=== PATIENT | male | born 1945 | race Caucasian/White ===

== ENCOUNTER 2017-10-25 09:47 | Emergency (ER) | payer MEDICARE ==
--- NOTE | 2017-11-24 17:59 | EKG ---
Test Reason : Blood Pressure : / mmHG Vent. Rate : 098 BPM Atrial Rate : 098 BPM P-R Int : 190 ms QRS Dur : 084 ms QT Int : 338 ms P-R-T Axes : 112 -22 144 degrees QTc Int : 431 ms Normal sinus rhythm Left ventricular hypertrophy with repolarization abnormality Left axis deviation Nonspecific T wave abnormality Abnormal ECG Confirmed by BOBBI MALDONADO D.O. ([id number]), copy editor JERAD MUNGUIA ([id number]) on 11/24/2017 5:58:59 PM Referred By: DR. MALDONADO Confirmed By:BOBBI MALDONADO D.O.
== END 2017-10-25 10:52 | disposition home or self-care (01) ==
LOC: SCSER 09:47
DX: J32.9 Chronic sinusitis, unspecified (principal); B96.89 Other specified bacterial agents as the cause of diseases classified elsewhere; I10 Essential (primary) hypertension; I48.91 Unspecified atrial fibrillation; Z79.899 Other long term (current) drug therapy; Z79.82 Long term (current) use of aspirin; Z79.01 Long term (current) use of anticoagulants
CPT/HCPCS: 93005

== ENCOUNTER 2017-10-27 12:29 | Emergency (ER) | payer MEDICARE ==
[2017-10-27 13:55] LABS: #Eosinphils 0.2 thou/uL (0.0-0.7); #Lymphocytes 1.5 thou/uL (1.20-3.40); #Neutrophils 5.7 thou/uL (1.40-6.50); %Basophils 0.3 % (0.0-1.0); %Eosinophils 1.8 % (0.0-10.0); %Lymphocytes 17.6 % (21.0-51.0); %Monocytes 12.1 % (0.0-10.0); %Neutrophils 68.2 % (42.0-75.0); Hemoglobin 14.5 g/dL (14.0-18.0); Mean Corpuscular HGB CONC 33.9 g/dL (32.0-36.0); Mean Corpuscular Hemoglobin 30.8 pg (27.0-31.0); Mean Corpuscular Volume 91.1 fl (80.0-94.0); Mean Platelet Volume 7.3 fL (7.4-10.4); Platelet Count 226 thou/uL (130-400); RBC Distribution Width 12.3 % (11.5-14.5); Red Blood Cell (RBC) Count 4.69 mill/uL (4.70-6.10); White Blood Cell (WBC) Count 8.3 thou/uL (4.8-10.8)
--- NOTE | 2017-10-27 14:11 | RAD ---
PORTABLE CHEST ONE VIEW: 10/27/2017 1:16 p.m. HISTORY: Shortness of breath. COMPARISON: 01/23/2017 FINDINGS: There is continued elevation of the right hemidiaphragm. There are changes of median sternotomy. Th e heart size is enlarged. The aorta is tortuous. No focal areas of consolidation, pneumothorax, or pleural effusions are seen. IMPRESSION: No radiographic evidence of acute cardiopulmonary process. POS: [facility]
[2017-10-27 14:16] LABS: ALT (SGPT) 17 U/L (8-55); AST (SGOT) 14 U/L (5-34); Alkaline Phosphatase 59 U/L (40-150); Anion Gap 13 mmol/L (10-20); BUN (Urea Nitrogen) 13 mg/dL (8.4-25.7); Bilirubin, Total 1.1 mg/dL (0.2-1.2); CK (CPK) 103 U/L (30-200); Calc. Creatinine Clearance 0 mL/min (70-130); Calcium 9.7 mg/dL (7.8-10.44); Carbon Dioxide 29 mmol/L (23-31); Chloride 100 mmol/L (98-107); Estimated GFR-MDRD Greater than 90; Globulin 2.7 g/dL (2.4-3.5); Glucose 103 mg/dL (83-110); Potassium 4.1 mmol/L (3.5-5.1); Protein, Total 6.7 g/dL (5.8-8.1); Sodium 138 mmol/L (136-145)
[2017-10-27 14:20] LABS: CKMB 3.5 ng/mL (0-6.6); Troponin I 0.016 ng/mL (< 0.028)
[2017-10-27] MEDS ORDERED: Azithromycin 500 MG in Sodium Chloride 0.9% 250 ML 250 ML IVPB ONE (14:30)
[2017-10-27 16:21] LABS: Magnesium 2.1 mg/dL (1.6-2.6)
--- NOTE | 2017-11-03 15:42 | EKG ---
Test Reason : Blood Pressure : / mmHG Vent. Rate : 092 BPM Atrial Rate : 092 BPM P-R Int : 182 ms QRS Dur : 088 ms QT Int : 370 ms P-R-T Axes : 032 -17 139 degrees QTc Int : 457 ms Sinus rhythm with frequent Premature ventricular complexes --trigeminy Left ventricular hypertrophy with repolarization abnormality Abnormal ECG Confirmed by GHANSHYAM GRIFFIN DO ([id number]), newspaper photo editor SALVATORE RODRIGES ([id number]) on 11/03/2017 3:41:48 PM Referred By: Confirmed By:GHANSHYAM GRIFFIN DO
== END 2017-10-27 17:23 | disposition home or self-care (01) ==
LOC: ERS 12:29
DX: J20.9 Acute bronchitis, unspecified (principal); I10 Essential (primary) hypertension; I48.91 Unspecified atrial fibrillation
CPT/HCPCS: 71010; 80053; 82553; 83690; 83735; 84443; 84484; 85025; 87804; 93005; 94640; 96365; 96375; J0456; J0696; J7050; J7620

== ENCOUNTER 2017-11-23 07:59 | Outpatient (CLI) | payer MEDICARE ==
--- NOTE | 2017-11-23 10:57 | MRI ---
MRI OF THE RIGHT SHOULDER: Date: 11/23/17 PROVIDED CLINICAL HISTORY: Right shoulder pain. FINDINGS: There is a full thickness, partial width, delaminating tear of the posterior fibers of the supraspina tus. There is tendinosis of the distal conjoined tendon with associated bursal surface irregularity a nd low grade partial thickness interstitial tearing. The subscapularis and teres minor appear intact. The long head biceps tendon appears intact and normally located. There is suspected degenerative, nondisplaced tearing involving the superior and posterior superior g lenoid labrum. The glenoid labrum and glenohumeral articular cartilage are suboptimally evaluated wit hout joint distention. There is evidence for cartilage loss involving the central aspects of the galilea oid with subject subcortical cyst-like change. The amount of fluid within the glenohumeral joint is physiologic. There is greater than physiologic s ubacromial/subdeltoid bursal fluid. Acromioclavicular joint osteoarthrosis is demonstrated. Subscapularis muscular volume loss is noted, the significance of which is uncertain. Rotator cuff muscular volume appears otherwise preserved. Co nspicuous subacromial/subdeltoid bursal fluid is noted. IMPRESSION: 1. Full thickness, partial width, retracted and delaminating tear involving the posterior fibers of the supraspinatus. Tendon fibers are retracted proximally into the region of the musculotendinous mc ction. 2. Distal conjoined tendinosis with bursal surface irregularity and low grade interstitial partial t earing. 3. Degenerative superior and posterior superior glenoid labral tear is suspected along with glenoid chondrosis. 4. Acromioclavicular joint osteoarthrosis. 5. Conspicuous subacromial/subdeltoid bursal fluid, possibly reflecting occult bursitis. POS: [facility]
== END 2017-11-23 08:00 | disposition home or self-care (01) ==
LOC: MRI 07:59 → TBSIIMAG 08:00
PROVIDERS: ATTEND Orthopaedic Surgery
DX: M25.511 Pain in right shoulder (principal); M19.011 Primary osteoarthritis, right shoulder

== ENCOUNTER 2017-12-03 12:42 | Outpatient (CLI) | payer MEDICARE ==
[2017-12-03 14:00] LABS: #Eosinphils 0.1 thou/uL (0.0-0.7); #Lymphocytes 1.9 thou/uL (1.20-3.40); #Monocytes 0.9 thou/uL (0.11-0.59); #Neutrophils 5.8 thou/uL (1.40-6.50); %Basophils 0.2 % (0.0-1.0); %Eosinophils 1.6 % (0.0-10.0); %Lymphocytes 21.8 % (21.0-51.0); %Monocytes 9.9 % (0.0-10.0); %Neutrophils 66.5 % (42.0-75.0); Hemoglobin 14.5 g/dL (14.0-18.0); Mean Corpuscular HGB CONC 33.3 g/dL (32.0-36.0); Mean Corpuscular Hemoglobin 30.2 pg (27.0-31.0); Mean Corpuscular Volume 90.5 fl (80.0-94.0); Mean Platelet Volume 7.6 fL (7.4-10.4); Platelet Count 214 thou/uL (130-400); RBC Distribution Width 12.9 % (11.5-14.5); Red Blood Cell (RBC) Count 4.79 mill/uL (4.70-6.10); White Blood Cell (WBC) Count 8.7 thou/uL (4.8-10.8)
[2017-12-03 14:46] LABS: Anion Gap 11 mmol/L (10-20); BUN (Urea Nitrogen) 13 mg/dL (8.4-25.7); Calc. Creatinine Clearance 0 mL/min (70-130); Calcium 9.6 mg/dL (7.8-10.44); Carbon Dioxide 30 mmol/L (23-31); Chloride 103 mmol/L (98-107); Estimated GFR-MDRD 87; Glucose 166 mg/dL (83-110); Potassium 3.6 mmol/L (3.5-5.1); Sodium 140 mmol/L (136-145)
== END 2017-12-03 12:43 | disposition home or self-care (01) ==
LOC: LABBT 12:42
PROVIDERS: ATTEND Orthopaedic Surgery
DX: Z01.818 Encounter for other preprocedural examination (principal); M75.101 Unspecified rotator cuff tear or rupture of right shoulder, not specified as traumatic
CPT/HCPCS: 80048; 85025; 93005; 93010

== ENCOUNTER 2017-12-06 06:02 | Day surgery (SDC) | payer MEDICARE ==
[2017-12-03 13:10] VITALS: BMI 35.4
[2017-12-06] MEDS ORDERED: Fentanyl 100 MCG/2 ML VIAL ONE (06:28)
[2017-12-06] MEDS ORDERED: Lidocaine 1% (PF) 30 ML VIAL ONE (06:28)
[2017-12-06] MEDS ORDERED: Midazolam HCl 2 mg/2 ml Vial ONE (06:28)
[2017-12-06] MEDS ORDERED: Ropivacaine 0.2% 550 ML 550 ML NERVE BLCK SCH (06:49)
[2017-12-06] MEDS ORDERED: HYDROcodone/Acetaminophen 10/325 mg Tablet PO PRN ×2 (06:49)
[2017-12-06] MEDS ORDERED: traMADol HCl 50 MG TAB PO PRN ×2 (06:49)
[2017-12-06] MEDS ORDERED: Ketorolac Tromethamine 30 MG/ML VIAL IVP PRN (06:49)
[2017-12-06] MEDS ORDERED: Zolpidem Tartrate 5 MG TAB PO PRN (06:49)
[2017-12-06] MEDS ORDERED: Ondansetron HCl/PF 4 MG/2 ML Vial IVP PRN (06:49)
[2017-12-06] MEDS ORDERED: Promethazine HCl 25 MG/ML VIAL IM PRN (06:49)
[2017-12-06] MEDS ORDERED: Fentanyl 100 MCG/2 ML VIAL IV PRN (06:50)
[2017-12-06] MEDS ORDERED: Levofloxacin 500 mg/D5W 100 ml Premix Bag ONE (06:52)
[2017-12-06] MEDS ORDERED: Clindamycin/D5W 900 mg/50 ml Premix Bag ONE (06:52)
--- NOTE | 2017-12-06 10:35 | OP ---
PREOPERATIVE DIAGNOSIS: Rotator cuff tear, large. POSTOPERATIVE DIAGNOSIS: Rotator cuff tear, large. PROCEDURE PERFORMED: Open shoulder rotator cuff repair and open acromioplasty. SURGEON: Dr. Abebe. BRUSHER AND SHEARER: Alexandru Sanchez PA-C. BLOOD LOSS: Minimal. SPECIMEN: None. DRAINS: None. COMPLICATIONS: None. DESCRIPTION OF PROCEDURE: The patient taken to the operating room where general anesthesia was induc ed. He was placed in a beach chair position. Right arm was prepped and draped in the usual sterile fashion. I made a standard anterior deltoid splitting approach. Anterior and inferior acromioplasty was performed. Bursectomy was performed. A strange rotator cuff tear pattern, which extended from the greater tuberosity all the way to the glenoid through the supraspinatus. I freshened up the deysi ins of the tear. I repaired this with a weaving baseball type stitch side to side starting at the ap ex and going all the way laterally and then I tied this, passed through a small remaining portion of cuff tissue and repaired it down laterally with an Arthrex SwiveLock device. The shoulder was then i rrigated. Deltoid was repaired back to bone with #1 Ethibond, subcu closed with 2-0 Vicryl, the skin was closed with gisela.
[2017-12-06] MEDS ORDERED: Ropivacaine 0.5% HCl/PF (150 MG/30 ML VIAL) ONE (11:42)
[2017-12-06] MEDS ORDERED: Ropivacaine 0.2% HCl/PF (40 MG/20 ML VIAL) ONE (11:42)
[2017-12-06] MEDS ORDERED: Propofol 200 MG/20 ML VIAL ONE (12:09)
[2017-12-06] MEDS ORDERED: Lidocaine 1% PF 5 ML VIAL ONE (12:09)
[2017-12-06] MEDS ORDERED: Ondansetron HCl/PF 4 MG/2 ML Vial ONE (12:09)
[2017-12-06] MEDS ORDERED: PHENYLEPHRINE-NS 100 MCG/ML 10 ML SYRINGE ONE (12:09)
[2017-12-06] MEDS ORDERED: ePHEDrine/0.9% NaCl/PF SYRINGE 50 mg/10 ml ONE (12:09)
[2017-12-06] MEDS ORDERED: Glycopyrrolate 0.2 MG/ML 5 ML SYRINGE ONE (12:09)
== END 2017-12-06 11:30 | disposition home or self-care (01) ==
LOC: SDC 06:02
PROVIDERS: ATTEND Orthopaedic Surgery
PROC: 0LQ10ZZ Repair Right Shoulder Tendon, Open Approach (ICD-10-PCS; principal; 2017-12-06)
PROC: 0RHJ04Z Insertion of Internal Fixation Device into Right Shoulder Joint, Open Approach (ICD-10-PCS; 2017-12-06)
DX: M75.121 Complete rotator cuff tear or rupture of right shoulder, not specified as traumatic (principal); I10 Essential (primary) hypertension; I48.2 Chronic atrial fibrillation; E78.5 Hyperlipidemia, unspecified; I47.1 Supraventricular tachycardia; Z79.01 Long term (current) use of anticoagulants; Z79.899 Other long term (current) drug therapy; Z88.0 Allergy status to penicillin; Z88.8 Allergy status to other drugs, medicaments and biological substances; Z96.653 Presence of artificial knee joint, bilateral; Z98.890 Other specified postprocedural states
CPT/HCPCS: 23415; 97139; A4306; C1713; G8984; G8985; G8986; J1956; J2001; J2250; J2795; J3010; J3490

== ENCOUNTER → 2017-12-07 | Day surgery (SDC) | payer MEDICARE ==
[~2017-12-07] MED LIST: Ropivacaine 0.2% HCl/PF (40 MG/20 ML VIAL) ONE; Ropivacaine 0.5% HCl/PF (150 MG/30 ML VIAL) ONE
== END ==
LOC: SDC/OP 07:35
PROVIDERS: ATTEND Anesthesiology
PROC: 3E0T3BZ Introduction of Anesthetic Agent into Peripheral Nerves and Plexi, Percutaneous Approach (ICD-10-PCS; principal; 2017-12-07)
PROC: BP48ZZZ Ultrasonography of Right Shoulder (ICD-10-PCS; 2017-12-07)
DX: M25.511 Pain in right shoulder (principal); Z88.0 Allergy status to penicillin; Z88.8 Allergy status to other drugs, medicaments and biological substances; Z79.01 Long term (current) use of anticoagulants; Z79.899 Other long term (current) drug therapy
CPT/HCPCS: J2795

== ENCOUNTER 2018-02-11 19:30 | Outpatient (CLI) | payer MEDICARE | END 2018-02-11 19:31 | disposition home or self-care (01) | LOC: SLEEPLAB 19:30 | PROVIDERS: ATTEND Otolaryngology Plastic Surgery within the Head & Neck | DX: G47.33 Obstructive sleep apnea (adult) (pediatric) (principal); I10 Essential (primary) hypertension; I48.91 Unspecified atrial fibrillation; I49.3 Ventricular premature depolarization | CPT/HCPCS: 95810 ==

== ENCOUNTER 2018-06-24 14:00 | Emergency (ER) | payer MEDICARE | END 2018-06-24 14:38 | disposition home or self-care (01) | LOC: SCSER 14:00 | DX: S80.12XA Contusion of left lower leg, initial encounter (principal); S80.11XA Contusion of right lower leg, initial encounter; I10 Essential (primary) hypertension; I48.91 Unspecified atrial fibrillation; Z96.653 Presence of artificial knee joint, bilateral; W18.30XA Fall on same level, unspecified, initial encounter | CPT/HCPCS: 99283 ==

== ENCOUNTER 2018-06-27 08:55 | Emergency (ER) | payer MEDICARE ==
--- NOTE | 2018-06-27 10:54 | RAD ---
2 VIEWS LEFT FORELEG: Date: 06/27/18 INDICATION: Left leg injury. COMPARISON: None. FINDINGS: There is left total knee prosthesis. A small amount of polymethylmethacrylate is seen within the post erior aspect of the knee joint. No acute fracture or subluxation is evident. There is soft tissue swe lling of left foreleg. IMPRESSION: No acute osseous abnormality. Soft tissue swelling of left foreleg. POS: [facility]
== END 2018-06-27 10:55 | disposition home or self-care (01) ==
LOC: SCSER 08:55
DX: S80.12XA Contusion of left lower leg, initial encounter (principal); S80.11XA Contusion of right lower leg, initial encounter; I10 Essential (primary) hypertension; I48.91 Unspecified atrial fibrillation; Z79.899 Other long term (current) drug therapy; W17.89XA Other fall from one level to another, initial encounter; Y92.61 Building [any] under construction as the place of occurrence of the external cause

== ENCOUNTER 2018-06-29 12:44 | Emergency (ER) | payer MEDICARE ==
[2018-06-29 14:59] LABS: #Eosinphils 0.2 thou/uL (0.0-0.7); #Lymphocytes 1.9 thou/uL (1.20-3.40); #Monocytes 0.7 thou/uL (0.11-0.59); #Neutrophils 4.6 thou/uL (1.40-6.50); %Basophils 0.2 % (0.0-1.0); %Eosinophils 2.9 % (0.0-10.0); %Lymphocytes 25.4 % (21.0-51.0); %Monocytes 9.6 % (0.0-10.0); %Neutrophils 61.9 % (42.0-75.0); Hemoglobin 14.1 g/dL (14.0-18.0); Mean Corpuscular HGB CONC 35.6 g/dL (32.0-36.0); Mean Corpuscular Hemoglobin 31.3 pg (27.0-31.0); Mean Corpuscular Volume 87.9 fL (78.0-98.0); Mean Platelet Volume 7.6 fL (7.4-10.4); Platelet Count 189 thou/uL (130-400); RBC Distribution Width 13.2 % (11.5-14.5); Red Blood Cell (RBC) Count 4.52 mill/uL (4.70-6.10); White Blood Cell (WBC) Count 7.4 thou/uL (4.8-10.8)
[2018-06-29 15:15] LABS: INR-International Normal Ratio 3.2; PTT 45.7 SEC (22.9-36.1); Prothrombin Time 32.5 SEC (12.0-14.7)
[2018-06-29 15:19] LABS: ALT (SGPT) 20 U/L (8-55); AST (SGOT) 18 U/L (5-34); Albumin 4.2 g/dL (3.4-4.8); Alkaline Phosphatase 66 U/L (40-150); Anion Gap 13 mmol/L (10-20); BUN (Urea Nitrogen) 15 mg/dL (8.4-25.7); Bilirubin, Total 1.6 mg/dL (0.2-1.2); CK (CPK) 54 U/L (30-200); Calc. Creatinine Clearance 0 mL/min (70-130); Carbon Dioxide 23 mmol/L (23-31); Chloride 106 mmol/L (98-107); Estimated GFR-MDRD 86; Globulin 2.4 g/dL (2.4-3.5); Glucose 98 mg/dL (83-110); Protein, Total 6.6 g/dL (5.8-8.1); Sodium 138 mmol/L (136-145)
[2018-06-29 15:23] LABS: CKMB 2.5 ng/mL (0-6.6); Troponin I Less than 0.010 ng/mL (< 0.028)
[2018-06-29] MEDS ORDERED: Lidocaine 1% w/Epinephrine 1:100K 20 ML VIAL ONE (15:24)
== END 2018-06-29 17:10 | disposition home or self-care (01) ==
LOC: ERS 12:44
DX: M79.81 Nontraumatic hematoma of soft tissue (principal); R60.0 Localized edema; I10 Essential (primary) hypertension; I48.91 Unspecified atrial fibrillation; Z79.899 Other long term (current) drug therapy; Z79.01 Long term (current) use of anticoagulants
CPT/HCPCS: 10140; 36415; 80053; 82553; 83880; 84484; 85025; 85610; 85730; 93005; J2001

== ENCOUNTER 2018-07-02 10:50 | Observation (INO) | payer MEDICARE ==
[2018-07-02] MEDS ORDERED: Bisacodyl 10 MG SUPP PR PRN (11:31)
[2018-07-02] MEDS ORDERED: Mag-Al 1200 mg/1200 mg/30 ML UDCUP PO PRN (11:31)
[2018-07-02] MEDS ORDERED: Bisacodyl 5 MG TAB PO PRN (11:31)
[2018-07-02] MEDS ORDERED: Loperamide HCl 2 MG CAP PO PRN (11:31)
[2018-07-02] MEDS ORDERED: Ondansetron HCl/PF 4 MG/2 ML Vial SLOW IVP PRN (11:31)
[2018-07-02] MEDS ORDERED: Calcium Carbonate 500 MG ChewTAB PO PRN (11:31)
[2018-07-02] MEDS ORDERED: Fleet Enema 133 ML BOT PR PRN (11:31)
[2018-07-02] MEDS ORDERED: Zolpidem Tartrate 5 MG TAB PO PRN (11:31)
[2018-07-02] MEDS ORDERED: Milk Of Magnesia 30 ML UDCUP PO PRN (11:31)
[2018-07-02] MEDS ORDERED: Pepto Bismol Chew TAB PO PRN (11:31)
[2018-07-02 11:35] VITALS: BMI 34.2
[2018-07-02] MEDS ORDERED: Prevnar 13-Val Conj/PF 0.5 ML SYRINGE IM ONE (11:45)
[2018-07-02] MEDS ORDERED: Furosemide 40 MG/4 ML VIAL SLOW IVP SCH (11:45)
--- NOTE | 2018-07-02 13:14 | RAD ---
PA AND LATERAL CHEST TWO VIEWS: HISTORY: A 73-year-old male with shortness of breath. COMPARISON: 02/22/2011 FINDINGS: Monitor leads overly the chest. Postop midline sternotomy. Mild cardiomegaly. No confluent pneumon ia, overt edema, or pleural effusion. IMPRESSION: 1. Postoperative midline sternotomy with borderline cardiomegaly. 2. Atherosclerosis of the aorta with ectasia. No significant new process. POS: [facility]
[2018-07-02 13:43] LABS: Eosinophils 2 % (0-10); Hemoglobin 14.5 g/dL (14.0-18.0); Lymphocytes 37 % (21-51); MDiff Complete? YES; Mean Corpuscular HGB CONC 34.3 g/dL (32.0-36.0); Mean Corpuscular Hemoglobin 30.6 pg (27.0-31.0); Mean Corpuscular Volume 89.2 fL (78.0-98.0); Mean Platelet Volume 8.3 fL (7.4-10.4); Monocytes 7 % (0-10); Neutrophil 53 % (42-75); Platelet Count 241 thou/uL (130-400); RBC Distribution Width 13.4 % (11.5-14.5); RBC Morphology Normal; Reactive Lymphocytes 1 % (0-10); Red Blood Cell (RBC) Count 4.74 mill/uL (4.70-6.10); White Blood Cell (WBC) Count 7.3 thou/uL (4.8-10.8)
[2018-07-02 13:44] LABS: Anion Gap 15 mmol/L (10-20); BUN (Urea Nitrogen) 13 mg/dL (8.4-25.7); Calc. Creatinine Clearance 120 mL/min (70-130); Calcium 9.1 mg/dL (7.8-10.44); Carbon Dioxide 20 mmol/L (23-31); Chloride 106 mmol/L (98-107); Estimated GFR-MDRD Greater than 90; Glucose 88 mg/dL (83-110); Potassium 4.1 mmol/L (3.5-5.1); Sodium 137 mmol/L (136-145)
[2018-07-02] MEDS: Cephalexin 250 MG CAP PO SCH ×2 (16:01→20:43)
[2018-07-02] MEDS ORDERED: Warfarin Sodium 7.5 MG TAB PO SCH (18:30)
[2018-07-02] MEDS: Carvedilol 3.125 MG TAB PO SCH (20:44)
[2018-07-02] MEDS: Famotidine/PF 20 mg/2ml Vial SLOW IVP SCH (20:45)
[2018-07-02] MEDS ORDERED: Montelukast Sodium 10 mg Tablet PO SCH (21:00)
[2018-07-02] MEDS ORDERED: Temazepam 15 MG CAP PO SCH (21:00)
[2018-07-02] MEDS ORDERED: Atorvastatin Calcium 20 MG TAB PO SCH (21:00)
[2018-07-03] MEDS: Cephalexin 250 MG CAP PO SCH ×3 (01:26→12:10)
[2018-07-03] MEDS: Furosemide 40 MG TAB PO SCH ×2 (05:24→12:11)
[2018-07-03 05:27] LABS: Anion Gap 12 mmol/L (10-20); BUN (Urea Nitrogen) 13 mg/dL (8.4-25.7); Calc. Creatinine Clearance 123 mL/min (70-130); Calcium 8.8 mg/dL (7.8-10.44); Carbon Dioxide 28 mmol/L (23-31); Chloride 103 mmol/L (98-107); Estimated GFR-MDRD Greater than 90; Glucose 91 mg/dL (83-110); Potassium 3.6 mmol/L (3.5-5.1); Sodium 139 mmol/L (136-145)
[2018-07-03] MEDS ORDERED: Furosemide 40 MG/4 ML VIAL IVP SCH (06:00)
[2018-07-03] MEDS ORDERED: Potassium Chloride 20 MEQ TAB PO SCH (08:00)
[2018-07-03 08:19] VITALS: BP 114/82; TEMP 98.3
[2018-07-03] MEDS: Carvedilol 3.125 MG TAB PO SCH (08:23)
[2018-07-03] MEDS: Famotidine/PF 20 mg/2ml Vial SLOW IVP SCH (08:24)
[2018-07-03] MEDS ORDERED: Losartan 25 MG TAB PO SCH (09:00)
--- NOTE | 2018-07-03 10:36 | CT ---
CT CHEST WITH IV CONTRAST: HISTORY: A 73-year-old male with a history of shortness of breath. History of open heart surgery. Fluid on l ungs. FINDINGS: There are some old granuloma calcifications, mostly in the right lung. There is a nonspecific bilate ral, somewhat mosaic appearance to the lungs, particularly the lower lung zones. Probable small hiat al hernia. Minimal three vessel coronary artery calcific disease. Postop midline sternotomy changes . There is an approximately 1.3 cm in diameter nodular focus in the left adrenal gland, nonspecific, possibly an adenoma, although not definitively characterized on this single post contrast study. Ot herwise, the visualized abdomen is unremarkable. No evidence for aortic aneurysm. No pleural or per icardial effusion. No mediastinal mass or adenopathy. IMPRESSION: 1. Postoperative midline sternotomy with mild cardiomegaly. 2. Old granulomatous disease. 3. Nonspecific, somewhat mosaic appearance of the lower lung zones. 4. Small nodular density in the left adrenal gland, nonspecific, possibly a small adenoma. 5. Minimal three vessel coronary artery calcific disease. POS: [facility]
--- NOTE | 2018-07-03 12:21 | DIS ---
DATE OF ADMISSION: 07/02/2018 DATE OF DISCHARGE: 07/03/2018 DISCHARGE DIAGNOSIS: Acute on chronic systolic heart failure. COMPLICATIONS: None. HOSPITAL COURSE: Mr. Mcallister is a very pleasant 73-year-old gentleman who I admitted from the office due to increased shortness of breath. He had increase in weight. He states he had increased abdomin al girth. He also has had a hematoma noted to the left leg which was lanced at a local ER. He was p laced on Keflex. He was admitted and placed on IV diuretics. He had significant diuresis and felt much better on the day of discharge. He had a CT scan of the chest also performed that was nonspecific. DISCHARGE MEDICATIONS: Coumadin as prescribed, temazepam as prescribed, Zocor 40 at bedtime, albuter ol 2 puffs p.r.n., losartan 50 mg daily, carvedilol 3.125 b.i.d., potassium 20 mEq b.i.d., Lasix 40 m g q.a.m. and q. noon. CONDITION ON DISCHARGE: Stable.
[2018-07-03] MEDS ORDERED: Warfarin Sodium 7.5 MG TAB PO SCH (17:00)
== END 2018-07-03 12:19 | disposition home or self-care (01) ==
LOC: 2SW 10:57
PROVIDERS: ADMIT Internal Medicine Cardiovascular Disease; ATTEND Internal Medicine Cardiovascular Disease
DX: I50.23 Acute on chronic systolic (congestive) heart failure (principal); Z88.0 Allergy status to penicillin; Z88.5 Allergy status to narcotic agent; Z79.899 Other long term (current) drug therapy
CPT/HCPCS: 71046; 71260; 80048 ×2; 83880; 84443; 85007; 85027; 87040; 96374; 96375; 96376; G0378; G0379; 36415; A4216; J1940; S0028

== ENCOUNTER 2018-07-17 19:30 | Outpatient (CLI) | payer MEDICARE | END 2018-07-17 19:31 | disposition home or self-care (01) | LOC: SLEEPLAB 19:30 | PROVIDERS: ATTEND Otolaryngology Plastic Surgery within the Head & Neck | DX: G47.33 Obstructive sleep apnea (adult) (pediatric) (principal); F51.9 Sleep disorder not due to a substance or known physiological condition, unspecified; R06.83 Snoring; G47.10 Hypersomnia, unspecified; E66.9 Obesity, unspecified; Z68.34 Body mass index [BMI] 34.0-34.9, adult | CPT/HCPCS: 95811 ==

== ENCOUNTER 2018-07-25 17:25 | Inpatient (IN) | payer MEDICARE ==
[2018-07-25] MEDS ORDERED: Milk Of Magnesia 30 ML UDCUP PO PRN (18:13)
[2018-07-25] MEDS ORDERED: Ondansetron HCl/PF 4 MG/2 ML Vial SLOW IVP PRN (18:13)
[2018-07-25] MEDS ORDERED: Furosemide 40 MG/4 ML VIAL SLOW IVP SCH (18:15)
[2018-07-25 19:15] LABS: CKMB 2.3 ng/mL (0-6.6); Troponin I Less than 0.010 ng/mL (< 0.028)
--- NOTE | 2018-07-25 20:12 | RAD ---
RADIOGRAPH CHEST 2 VIEWS: 07/25/18 HISTORY: 73-year-old male with dyspnea. FINDINGS: There is cardiomegaly. The thoracic aorta is tortuous and ectatic. There is no evidence of air space density, pulmonary edema, or pneumothorax. There is no pleural effusion. IMPRESSION: 1) No acute pulmonary findings. 2) Cardiomegaly without congestive heart failure. 3) Ectasia of thoracic aorta. kaden [] POS: [facility]
[2018-07-25 22:08] VITALS: BMI 34.4
[2018-07-25] MEDS: Acetaminophen 325 MG TAB PO PRN (22:11)
[2018-07-26] MEDS ORDERED: Communication Order-Pharmacy FS SCH (07:15)
[2018-07-26] MEDS: Acetaminophen 325 MG TAB PO PRN (07:50)
[2018-07-26] MEDS: Sodium Chloride 0.9% 1,000 ML IV SCH ×2 (07:51→17:18)
[2018-07-26 09:25] LABS: INR-International Normal Ratio 1.9; Prothrombin Time 21.9 SEC (12.0-14.7)
[2018-07-26] MEDS ORDERED: Furosemide 40 MG/4 ML VIAL IVP SCH (09:30)
[2018-07-26] MEDS ORDERED: Iopamidol 370 76% 100 ML VIAL ONE (10:23)
[2018-07-26] MEDS ORDERED: Lidocaine 1% (PF) 30 ML VIAL ONE (10:55)
[2018-07-26] MEDS ORDERED: Midazolam HCl 2 mg/2 ml Vial ONE (11:46)
[2018-07-26] MEDS ORDERED: Fentanyl 100 MCG/2 ML VIAL ONE (11:47)
[2018-07-26] MEDS ORDERED: Heparin 10,000 UNITS/1 ML VIAL ONE (11:59)
[2018-07-26] MEDS ORDERED: Nitroglycerin 100MG/250ML BOT 250 ML ONE (11:59)
[2018-07-26] MEDS ORDERED: Verapamil 5 MG/2 ML VIAL ONE (11:59)
[2018-07-26] MEDS ORDERED: Nitroglycerin 0.4 MG TAB (25 Tab Bottle) SL PRN (12:37)
[2018-07-26] MEDS ORDERED: traMADol HCl 50 MG TAB PO PRN (12:37)
[2018-07-26] MEDS ORDERED: Acetaminophen/Codeine 30-300mg Tablet PO PRN ×2 (12:37)
[2018-07-26] MEDS ORDERED: Sodium Chloride 0.9% 200 ML IV SCH (12:45)
[2018-07-26] MEDS ORDERED: Sodium Chloride 0.9% 1,000 ML IV SCH (12:45)
--- NOTE | 2018-07-26 12:56 | RAD ---
2 VIEWS CHEST: Date: 07/26/18 COMPARISON: 07/25/18. HISTORY: Shortness of breath and CHF. FINDINGS: Two views of the chest show an enlarged but stable cardiomediastinal silhouette. The patient is statu s post sternotomy. There is no evidence of consolidation, mass, or pleural effusion. Degenerative chino nges are seen in the spine. IMPRESSION: Stable cardiomegaly. POS: [facility]
[2018-07-26] MEDS ORDERED: Warfarin Sodium 7.5 MG TAB PO SCH (17:00)
[2018-07-26 17:28] LABS: Hemoglobin 14.5 g/dL (14.0-18.0); Platelet Count 203 thou/uL (130-400)
[2018-07-26] MEDS: Carvedilol 3.125 MG TAB PO SCH (20:48)
[2018-07-26] MEDS: Sacubitril 24.5 MG/Valsartan 25.5 MG TABLET PO SCH (20:48)
[2018-07-27] MEDS: Sacubitril 24.5 MG/Valsartan 25.5 MG TABLET PO SCH (08:05)
[2018-07-27] MEDS: Carvedilol 3.125 MG TAB PO SCH (08:06)
--- NOTE | 2018-07-27 15:23 | DIS ---
DATE OF ADMISSION: 07/25/2018 DATE OF DISCHARGE: 07/27/2018 DISCHARGE DIAGNOSIS: Nonischemic cardiomyopathy. PROCEDURES PERFORMED: Left heart catheterization. SUMMARY: Mr. Mcallister is a pleasant 73-year-old white gentleman who comes to the hospital for heart fa [facility]. He was taken to the catheterization lab to evaluate for ischemia. He was found to have no si gnificant coronary artery disease. He was up titrated on heart failure medications and he is stable for discharge today. His EF being less than 35%, he was placed on a LifeVest before discharge which is already set up and he has learned how to use it. He is ready to go home. DISCHARGE FOLLOWUP: 1. Followup appointments with Dr. Mann rojas or Sara Ch PA-C in 2-4 weeks. 2. With PCP as previously scheduled. Over 30 minutes were spent at bedside on discharge instructions.
[2018-07-27 15:29] VITALS: BP 111/70; TEMP 98
== END 2018-07-27 16:30 | disposition home or self-care (01) | DRG 287 ==
LOC: 2NO 17:25
PROVIDERS: ADMIT Internal Medicine Cardiovascular Disease; ATTEND Internal Medicine Cardiovascular Disease
PROC: 4A023N7 Measurement of Cardiac Sampling and Pressure, Left Heart, Percutaneous Approach (ICD-10-PCS; principal; 2018-07-26)
PROC: B2111ZZ Fluoroscopy of Multiple Coronary Arteries using Low Osmolar Contrast (ICD-10-PCS; 2018-07-26)
PROC: B2151ZZ Fluoroscopy of Left Heart using Low Osmolar Contrast (ICD-10-PCS; 2018-07-26)
DX: I11.0 Hypertensive heart disease with heart failure (principal); I50.23 Acute on chronic systolic (congestive) heart failure; I42.8 Other cardiomyopathies; I25.10 Atherosclerotic heart disease of native coronary artery without angina pectoris; E78.5 Hyperlipidemia, unspecified; I48.2 Chronic atrial fibrillation; Z98.890 Other specified postprocedural states; Z79.01 Long term (current) use of anticoagulants; Z79.899 Other long term (current) drug therapy; Z88.0 Allergy status to penicillin
CPT/HCPCS: 36415; 71046; 80053; 82553; 83880; 84484; 85014; 85018; 85025; 85049; 85610; 93458; 93798; 94760; 99152; A4216; C1769; J1644; J1940; J2001; J2250; J3010

== ENCOUNTER 2018-12-30 20:24 | Inpatient (IN) | payer MEDICARE ==
[2018-12-30 21:21] LABS: #Lymphocytes 0.4 thou/uL (1.20-3.40); #Monocytes 0.3 thou/uL (0.11-0.59); #Neutrophils 9.9 thou/uL (1.40-6.50); %Basophils 0.3 % (0.0-1.0); %Eosinophils 0.3 % (0.0-10.0); %Lymphocytes 3.9 % (21.0-51.0); %Monocytes 3.2 % (0.0-10.0); %Neutrophils 92.4 % (42.0-75.0); Mean Corpuscular Hemoglobin 29.9 pg (27.0-31.0); Mean Corpuscular Volume 90.6 fL (78.0-98.0); Mean Platelet Volume 8.2 fL (7.4-10.4); Platelet Count 163 thou/uL (130-400); Red Blood Cell (RBC) Count 5.01 mill/uL (4.70-6.10); White Blood Cell (WBC) Count 10.7 thou/uL (4.8-10.8)
--- NOTE | 2018-12-30 21:34 | RAD ---
CHEST TWO VIEWS: History: Dyspnea. Comparison: 07-26-18 FINDINGS: Interval placement of left sided transvenous pacemaker with leads positioned over the right atrium an d right ventricle. There is atherosclerosis and elongation of the aorta. Heart size is upper normal. There are sternotomy wires. Pulmonary vessels are prominent. Costophrenic angles are clear. No consol idation or mass. No pneumothorax or osseous abnormality. IMPRESSION: 1. Atherosclerosis and elongation. 2. Cardiomegaly and pulmonary vascular congestion. Correlate for congestive heart failure. POS: [facility]
[2018-12-30 21:52] LABS: ALT (SGPT) 13 U/L (8-55); AST (SGOT) 15 U/L (5-34); Albumin 4.3 g/dL (3.4-4.8); Alkaline Phosphatase 70 U/L (40-150); Anion Gap 13 mmol/L (10-20); BUN (Urea Nitrogen) 13 mg/dL (8.4-25.7); Calc. Creatinine Clearance 0 mL/min (70-130); Carbon Dioxide 27 mmol/L (23-31); Chloride 102 mmol/L (98-107); Estimated GFR-MDRD 75; Globulin 2.2 g/dL (2.4-3.5); Glucose 168 mg/dL (83-110); Protein, Total 6.5 g/dL (5.8-8.1); Sodium 138 mmol/L (136-145)
[2018-12-30 22:22] LABS: INR-International Normal Ratio 3.2; Prothrombin Time 32.9 SEC (12.0-14.7)
[2018-12-30 22:23] LABS: PTT 56.8 SEC (22.9-36.1)
[2018-12-30 22:29] LABS: CK (CPK) 134 U/L (30-200); Lipase 33 U/L (8-78)
[2018-12-30] MEDS ORDERED: Furosemide 40 MG/4 ML VIAL ONE (22:59)
[2018-12-30] MEDS ORDERED: Nitroglycerin 2% Ointment 1 INCH/1 GM Packet ONE (22:59)
[2018-12-30] MEDS ORDERED: Acetaminophen 325 MG TAB ONE (22:59)
[2018-12-31 00:57] VITALS: BMI 35.4
[2018-12-31 01:16] LABS: Troponin I Less than 0.010 ng/mL (< 0.028)
[2018-12-31 04:00] LABS: Troponin I Less than 0.010 ng/mL (< 0.028)
[2018-12-31] MEDS ORDERED: Acetaminophen 325 MG TAB PO PRN (04:53)
[2018-12-31] MEDS ORDERED: Ondansetron PF 4 MG/2 ML Vial SLOW IVP PRN (04:54)
[2018-12-31] MEDS ORDERED: Sodium Chloride 0.9% 10 ML ONE ×3 (05:04→23:15)
[2018-12-31] MEDS ORDERED: Benzonatate 100 MG CAP PO SCH (06:00)
[2018-12-31] MEDS ORDERED: Furosemide 40 MG/4 ML VIAL SLOW IVP SCH (09:00)
[2018-12-31] MEDS ORDERED: cloNIDine 0.1 MG TAB PO PRN (11:29)
[2018-12-31] MEDS ORDERED: Ondansetron ODT 4 MG TAB PO PRN (11:29)
[2018-12-31] MEDS ORDERED: hydrALAZINE 20 MG/ML VIAL SLOW IVP PRN (11:29)
[2018-12-31] MEDS ORDERED: Ondansetron PF 4 MG/2 ML Vial IVP PRN (11:29)
[2018-12-31] MEDS ORDERED: ALPRAZolam 0.5 MG TAB PO PRN (11:29)
[2018-12-31] MEDS ORDERED: Budesonide 0.5 MG/2 ML NEB INH SCH ×2 (12:00)
[2018-12-31] MEDS: methylPREDNISolone Sod Succ 40 MG VIAL IVP SCH ×3 (12:13→23:28)
[2018-12-31] MEDS: Phenergan/Codeine 10-6.25mg/5ml UDCUP PO PRN ×3 (12:13→21:06)
[2018-12-31] MEDS: Acetaminophen 500 MG TAB PO PRN (12:21)
--- NOTE | 2018-12-31 13:29 | HP ---
PRIMARY CARE PROVIDER: Linden Snyder MD CHIEF COMPLAINT: Cough and shortness of breath. HISTORY OF PRESENT ILLNESS: This is a 73-year-old male, who presented to [facility] Emergency Department complaining of approximate 3-day history of worsening cough, shortness of breath, with recent prescription for Levaquin and prednisone. The patient states he saw his primary care provider in the last 2 to 3 days and was placed on Levaquin and prednisone. The patient states he took 1 dose of Levaquin and Tessalon Perles without relief of his symptoms. The patient was concerned due to a prior history of similar symptoms progressing to pneumonia. The patient denied any documented fever, exposure history, or family members with similar symptoms. The patient complained of nonproductive cough, some chills without fever. 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 The patient denies any smoking or prior smoking history and states his influenza and pneumonia vaccinations are current. In the emergency room, the patient underwent general evaluation including chest imaging showing mild pulmonary vascular prominence. The patient received transdermal nitroglycerin, Lasix 40 mg IV x1 dose in addition to DuoNebs and Tylenol. The patient symptomatically improved and was transferred to the telemetry unit for further evaluation. PAST MEDICAL HISTORY: 1. Nonischemic cardiomyopathy with ejection fraction of approximately 30%. 2. Dyslipidemia. 3. Hypertension. 4. Chronic atrial fibrillation with chronic anticoagulation with Coumadin. 5. Obstructive sleep apnea with nocturnal CPAP. 6. Chronic systolic congestive heart failure with ejection fraction of 30%. PAST SURGICAL HISTORY: 1. Status post mitral valve repair. 2. Status post AICD placement. 3. Status post left heart catheterization with minimal coronary artery disease 06/2018. 4. Status post bilateral total knee arthroplasty. 5. Status post cardiac ablation x3. 6. Status post nasal surgery. CURRENT MEDICATIONS: 1. Medrol Dosepak. 2. Levaquin 500 mg p.o. daily. 3. Lasix 40 mg p.o. b.i.d. 4. Carvedilol 6.25 mg p.o. b.i.d. 5. Coumadin 5 mg p.o. daily. 6. Entresto 24/26 mg 1 tablet p.o. b.i.d. 7. Simvastatin 40 mg p.o. at bedtime. 8. Xanax 0.5 mg p.o. at bedtime p.r.n. 9. Temazepam 15 mg p.o. at bedtime. ALLERGIES: PENICILLIN WITH INTOLERANCE TO PREDNISONE CAUSING TACHYCARDIA. FAMILY HISTORY: Positive for hypertension and dyslipidemia. SOCIAL HISTORY: The patient is , accompanied by his in the hospital. No current alcohol, tobacco, or illicit drug use. 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 Functional of all activities of daily living. REVIEW OF SYSTEMS: CONSTITUTIONAL: Negative for weight loss or gain, ability to conduct usual activities. SKIN: Negative for rash, itching. EYES: Negative for double vision, pain. ENT/MOUTH: Negative for nose bleeding, neck stiffness, pain, tenderness. CARDIOVASCULAR: Negative for palpitations, dyspnea on exertion, orthopnea. RESPIRATORY: Negative for shortness of breath, wheezing, cough, hemoptysis, fever or night sweats. GASTROINTESTINAL: Negative for poor appetite, abdominal pain, heartburn, nausea, vomiting, constipation, or diarrhea. GENITOURINARY: Negative for urgency, frequency, dysuria, nocturia. MUSCULOSKELETAL: Negative for pain, swelling. NEUROLOGIC/PSYCHIATRIC: Negative for anxiety, depression. ALLERGY/IMMUNOLOGIC: Negative for skin rash, bleeding tendency. Otherwise, negative except as stated per HPI. PHYSICAL EXAMINATION: VITAL SIGNS: Currently; blood pressure 124/69, pulse 81, respiratory rate 20, temperature 98.3 degrees Fahrenheit, and O2 saturation 95% on room air. GENERAL APPEARANCE: This is a 73-year-old male, alert and oriented x3, pleasant, conversant, in no acute distress. HEENT: Pupils are equal, round, and reactive to light and accommodation. Extraocular muscles are intact. No scleral icterus. No conjunctival injection. Nares patent. OP is clear. Teeth in good repair. NECK: Supple. No cervical adenopathy. No thyromegaly. No carotid bruits. No JVD appreciated. Cervical spine with full active and passive range of motion. No meningeal signs noted. CHEST: Expiratory wheezing bilaterally. Occasional scattered rhonchi. CARDIOVASCULAR: S1 and S2 with irregular rate and rhythm. 1 to 2/6 systolic ejection murmur at the apex. Left upper chest wall with AICD device in place with postsurgical changes noted. ABDOMEN: Obese, soft, nontender, and nondistended. Landmarks are difficult to palpate due to patient's body habitus. No palpable mass. No rebound or guarding noted. EXTREMITIES: Warm and dry with fair turgor. No clubbing, cyanosis, or asymmetric edema appreciated. Pulses palpable distally at the dorsalis pedis, posterior tibial, and popliteal arteries bilaterally. Capillary refill less than 2 seconds. NEUROLOGIC: Cranial nerves 2 through 12 are grossly intact. No focal or lateralizing signs appreciated. PERTINENT LAB AND X-RAY FINDINGS: Basic metabolic profile within normal limits. Total bilirubin 2.0, AST 15, ALT 13, and alkaline phosphatase 70. Total CK 134, troponin I negative x3, and BNP 667 and previously noted 343 on 07/25/2018. Lipase 33. CBC showed a white blood cell count of 10.7, hemoglobin 15, hematocrit 45, and platelet count 163 with 92% neutrophils. PT 32.9 and INR 3.2. Blood cultures x2 dated 12/30/2018, showed no growth to-date. Influenza A and B antigen dated 12/30/2018, negative. Portable chest x-ray dated 12/30/2018, showed cardiomegaly with pulmonary vascular prominence. AICD device in place in the left upper chest wall. EKG dated 12/31/2018, by my interpretation shows atrial fibrillation with rates in the 90s. Attenuated R-waves noted in the precordial leads. Left axis deviation. No acute ST-T wave changes appreciated. ASSESSMENT AND PLAN: 1. Acute chronic obstructive pulmonary disease exacerbation. Mild exacerbation currently. We will continue bronchodilator therapy with DuoNeb q.4 hours. Add Solu-Medrol 20 mg IV q.6 hours. Continue Levaquin 750 mg p.o. daily. Add budesonide 0.5 mg b.i.d. Cough suppressant with Phenergan/codeine 5 mL q.4 hours p.r.n. 2. Acute on chronic systolic congestive heart failure exacerbation. Mild exacerbation with mild pulmonary vascular prominence. We will continue Lasix 20 mg IV b.i.d. Continue to monitor daily weights and I's and O's. Recent echocardiogram showing ejection fraction in the 30% range. 3. Nonischemic cardiomyopathy. Ejection fraction approximately 30%, status post automatic implantable cardioverter-defibrillator placement. We will continue medical management. Continue Entresto 24/26 mg p.o. b.i.d. 4. Chronic atrial fibrillation with variable rate. We will continue telemetry monitoring. Continue beta-travis therapy with carvedilol 6.25 mg b.i.d. 5. Chronic anticoagulation. Continue Coumadin 5 mg daily. Daily PT/INR with goal rate of 2 to 3. 6. Prophylaxis. Sequential compression devices while in bed. Pepcid 20 mg p.o. b.i.d. 7. Code status is full code. Surrogate medical decision maker is the patient's spouse. Job ID: [id number]
[2018-12-31] MEDS: Furosemide 20 MG/2 ML VIAL SLOW IVP SCH (14:24)
--- NOTE | 2018-12-31 18:05 | CON ---
DATE OF CONSULTATION: HISTORY OF PRESENT ILLNESS: Mr. Mcallister is a pleasant 73-year-old male, who has been followed by Dr. Mendez. He has a history of asthma, history of mitral regurgitation requiring mitral ring repair, done in [place] many years ago. He presents with chest congestion. He was seen by Dr. Maddox yesterday, who prescribed prednisone, but he really started feeling worse as he went through the day. He now says he wished to come to the hospital last week. Because of his progressing shortness of breath and cough, he subsequently was seen in the emergency room and admitted. PAST MEDICAL HISTORY: Remarkable for; 1. Cardiomyopathy. 2. Tells me he has recurrence of his mitral regurgitation. 3. He has recent replacement with defibrillator. 4. History of lipid disorder. 5. History of hypertension. 6. History of atrial fibrillation status post cardioversion in the past. It was successful for 2 years with eventual reoccurrence of his atrial fibrillation. He is chronically on warfarin. 7. History of sleep apnea, on CPAP. 8. History of minimal coronary artery disease on the left heart catheterization last year. 9. Bilateral total knee replacements in the past. 10. History of three AFib ablation procedures. 11. History of sinus surgery in the past. MEDICATIONS: Prior to admission, he was on steroids and Levaquin, but only for one day, Lasix, Coreg, Coumadin, Entresto, simvastatin, Xanax, and Restoril for sleep. ALLERGIES: HE REPORTS PENICILLIN INTOLERANCE. FAMILY HISTORY: Positive for hypertension and lipid disorder. SOCIAL HISTORY: He is nonsmoker and nondrinker. 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 REVIEW OF SYSTEMS: Ten points negative. PHYSICAL EXAMINATION: GENERAL: He is in no distress. He can talk in complete sentences. VITAL SIGNS: He is afebrile, heart rate is 88, respiratory rate is 18, oximetry is 95% on room air, blood pressure 122/64. HEENT: Pupils are equal. Sclerae are anicteric. NECK: Supple. LUNGS: Remarkable for coarse wheezes diffusely. HEART: Irregular rhythm. S1 and S2 are normal. ABDOMEN: Soft and nontender. EXTREMITIES: Without clubbing, cyanosis, or edema. LABORATORY DATA: Chest radiograph shows slight increase in interstitial markings. IMPRESSION: Asthmatic bronchitis. There may be a component of cardiac asthma, but I suspect majority of this is a primary pulmonary problem. PLAN: We will continue with ipratropium and albuterol every 4 hours. His antimicrobial therapy can be switched to p.o. antimicrobial therapy today. His steroid dosing is adequate. Dr. Mendez will see him in the morning since he is normally followed by Dr. Mendez. His INR is 3.2 two days ago, probably needs to be rechecked tomorrow. Probably should be switched off Levaquin as this will interfere with his anticoagulation. Job ID: [id number]
[2018-12-31] MEDS: Budesonide 0.5 MG/2 ML NEB INH SCH (20:09)
[2018-12-31] MEDS ORDERED: Non-Formulary Item 1 EACH (Carvedilol [Coreg] 6.25 MG) PO SCH (21:00)
[2018-12-31] MEDS: Atorvastatin Calcium 20 MG TAB PO SCH (21:06)
[2018-12-31] MEDS: Temazepam 15 MG CAP PO SCH (21:06)
[2018-12-31] MEDS: Carvedilol 6.25 MG TAB PO SCH (21:06)
[2018-12-31] MEDS: Famotidine 20 MG TAB PO SCH (21:06)
[2018-12-31] MEDS: Sacubitril 24.5 MG/Valsartan 25.5 MG TABLET PO SCH (21:06)
[2019-01-01] MEDS: Phenergan/Codeine 10-6.25mg/5ml UDCUP PO PRN ×4 (03:27→21:56)
[2019-01-01] MEDS ORDERED: Sodium Chloride 0.9% 20 ML ONE (06:01)
[2019-01-01 06:13] LABS: INR-International Normal Ratio 2.7; Prothrombin Time 28.6 SEC (12.0-14.7)
[2019-01-01 06:25] LABS: Band 9 % (5-11); Hemoglobin 14.5 g/dL (14.0-18.0); Lymphocytes 5 % (21-51); MDiff Complete? YES; Mean Corpuscular HGB CONC 33.1 g/dL (32.0-36.0); Mean Corpuscular Hemoglobin 30.1 pg (27.0-31.0); Mean Corpuscular Volume 91.1 fL (78.0-98.0); Mean Platelet Volume 8.5 fL (7.4-10.4); Monocytes 3 % (0-10); Neutrophil 83 % (42-75); Platelet Count 175 thou/uL (130-400); RBC Distribution Width 13.2 % (11.5-14.5); Red Blood Cell (RBC) Count 4.82 mill/uL (4.70-6.10); White Blood Cell (WBC) Count 12.4 thou/uL (4.8-10.8)
[2019-01-01 06:32] LABS: Anion Gap 14 mmol/L (10-20); BUN (Urea Nitrogen) 14 mg/dL (8.4-25.7); Calc. Creatinine Clearance 112 mL/min (70-130); Calcium 9.3 mg/dL (7.8-10.44); Carbon Dioxide 28 mmol/L (23-31); Chloride 100 mmol/L (98-107); Estimated GFR-MDRD 86; Glucose 157 mg/dL (83-110); Sodium 138 mmol/L (136-145)
[2019-01-01] MEDS: Budesonide 0.5 MG/2 ML NEB INH SCH ×2 (06:39→19:52)
[2019-01-01] MEDS: Furosemide 20 MG/2 ML VIAL SLOW IVP SCH ×2 (06:48→14:48)
[2019-01-01] MEDS: methylPREDNISolone Sod Succ 40 MG VIAL IVP SCH ×2 (06:50→17:29)
[2019-01-01] MEDS: Famotidine 20 MG TAB PO SCH ×2 (09:18→21:55)
[2019-01-01] MEDS: Carvedilol 6.25 MG TAB PO SCH ×2 (09:18→21:55)
[2019-01-01] MEDS: Acetaminophen 500 MG TAB PO PRN (09:19)
[2019-01-01] MEDS: Sacubitril 24.5 MG/Valsartan 25.5 MG TABLET PO SCH ×2 (09:19→21:56)
--- NOTE | 2019-01-01 09:21 | PRG ---
DATE OF SERVICE: 01/01/2019 SUBJECTIVE: Tyrell Mcallister this morning is better. He is still having insomnia. He has not slept for a period of time. He has major reaction to cortisone, cortisone-related medication. His wheezing is improved. His cough is improved. OBJECTIVE: VITAL SIGNS: Temperature 97, pulse 85, sats 90% on room air, blood pressure 144/72. CHEST: Extensive bilateral crackles, minimal wheezing. CARDIAC: Sinus tach. ABDOMEN: No masses. LABORATORY DATA: White count [id number], hemoglobin and hematocrit 14 and 43, platelet count is normal. IMPRESSION: 1. Congestive heart failure. 2. Asthma. 3. Supraventricular tachycardia. PLAN: Started Dulera. He takes Symbicort at home. Decrease steroids. Continue neb treatments, supportive care. We will notify Dr. Darnell. Job ID: [id number]
[2019-01-01] MEDS: Warfarin Sodium 5 MG TAB PO SCH (16:48)
[2019-01-01] MEDS: Mometasone/Formoterol 120 PUFF INHALER INH SCH (19:54)
[2019-01-01] MEDS ORDERED: Sodium Chloride 0.9% 10 ML ONE (21:12)
--- NOTE | 2019-01-01 21:14 | PDOC.PN ---
- Subjective Encounter Start Date: 01/01/19 Encounter Start Time: 18:30 Subjective: f/u for CHF, COPD exacerbation on Lasix and Solumedrol/Duonebs. -: States feeling better overall but still wheezing. Weight down 2lbs. in -: 24h. - Objective Resuscitation Status - Order Detail: 12/31/18 11:17 Resuscitation Status Routine Resuscitation Status: FULL: Full Resuscitation MAR Reviewed: Yes Vital Signs & Weight: Vital Signs (12 hours) Temp Pulse Resp BP BP BP Pulse Ox 01/01/19 20:12 98 F 115 H 24 H 114/70 97 01/01/19 19:54 94 18 93 L 01/01/19 19:53 94 18 93 L 01/01/19 19:52 94 18 93 L 01/01/19 15:24 98 F 88 20 118/64 95 01/01/19 13:33 89 16 96 01/01/19 11:08 97.9 F 98 18 128/68 95 01/01/19 10:06 111 H 18 95 01/01/19 09:18 138/71 Weight Weight 238 lb 14.4 oz I&O: 12/31/18 01/01/19 01/02/19 06:59 06:59 06:59 Intake Total 750 1078 720 Output Total 500 1675 1150 Balance 250 -537 430 Result Diagrams: 01/01/19 05:23 01/01/19 05:23 Additional Labs: Microbiology 12/30/18 23:12 Nasal swab Influenza Types A,B Direct EIA - Final 12/30/18 22:12 Venous blood - Right Arm Blood Culture - Preliminary NO GROWTH AT 48 HOURS 12/30/18 22:12 Venous blood - Left Arm Blood Culture - Preliminary NO GROWTH AT 48 HOURS Laboratory Tests 12/30/18 12/30/18 01/01/19 21:10 21:11 05:23 WBC 10.7 Neutrophils % 92.4 H Neutrophils % (Manual) INR 3.2 2.7 01/01/19 05:23 WBC Neutrophils % Neutrophils % (Manual) 83 H INR EKG Reviewed by me: Yes (Tele - A-fib in 90-100's) Phys Exam - Physical Examination Constitutional: NAD HEENT: PERRLA, sclera anicteric, oral pharynx no lesions Neck: no nodes, no JVD, supple, full ROM scattered wheezes, occasional rhonchi tachycardic II/ FRANKY at apex Cardiovascular: no rub, irregular obese Gastrointestinal: soft, non-tender, no distention, positive bowel sounds Musculoskeletal: pulses present, edema present Neurological: normal sensation, moves all 4 limbs Psychiatric: A&O x 3 Skin: normal turgor, cap refill <2 seconds Dx/Plan (1) Acute exacerbation of chronic obstructive pulmonary disease (COPD) Code(s): J44.1 - CHRONIC OBSTRUCTIVE PULMONARY DISEASE W (ACUTE) EXACERBATION Status: Acute Comment: Persistent, continue O2 prn, continue Solumedrol/ Duonebs/Dulera, slow improvement (2) Acute on chronic systolic CHF (congestive heart failure) Code(s): I50.23 - ACUTE ON CHRONIC SYSTOLIC (CONGESTIVE) HEART FAILURE Status : Acute Comment: Improved with diuresis, continue Lasix IV, serial I/O's, daily weight (3) Chronic atrial fibrillation with RVR Code(s): I48.2 - CHRONIC ATRIAL FIBRILLATION Status: Chronic Comment: Variable rate noted, continue Coreg (4) Chronic anticoagulation Code(s): Z79.01 - SHELTER (CURRENT) USE OF ANTICOAGULANTS Status: Chronic Comment: INR therapeutic currently, continue Coumadin, serial INR (5) Nonischemic cardiomyopathy Code(s): I42.8 - OTHER CARDIOMYOPATHIES Status: Chronic Comment: EF 25% by [facility], continue Entresto, Coreg, Lasix - Plan plan discussed w/ family, continue antibiotics, respiratory therapy, out of bed/ ambulate Stable currently -: Continue pulmonary support with Solumedrol -: Continue Dulera/Duonebs -: Continue Coumadin 5mg daily -: AM lab: PT/INR * .
[2019-01-01] MEDS: Atorvastatin Calcium 20 MG TAB PO SCH (21:55)
[2019-01-01] MEDS: Temazepam 15 MG CAP PO SCH (21:56)
[2019-01-02] MEDS ORDERED: Sodium Chloride 0.9% 20 ML ONE (06:23)
[2019-01-02 06:37] LABS: INR-International Normal Ratio 2.4; Prothrombin Time 26.4 SEC (12.0-14.7)
[2019-01-02] MEDS: Furosemide 20 MG/2 ML VIAL SLOW IVP SCH (06:39)
[2019-01-02] MEDS: methylPREDNISolone Sod Succ 40 MG VIAL IVP SCH (06:41)
[2019-01-02] MEDS: Budesonide 0.5 MG/2 ML NEB INH SCH ×2 (06:55→19:00)
[2019-01-02] MEDS: Mometasone/Formoterol 120 PUFF INHALER INH SCH ×2 (07:00→18:58)
--- NOTE | 2019-01-02 07:17 | CON ---
DATE OF CONSULTATION: REASON FOR CONSULTATION: Congestive heart failure. HISTORY OF PRESENT ILLNESS: Mr. Mcallister is a very pleasant 73-year-old gentleman, who I have seen and evaluated in the past. He has a history of a nonischemic cardiomyopathy in addition to have moderate to severe mitral regurgitation status post mitral valve repair. He originally presented with bronchitis. He states he was given prednisone by primary provider. He states he became anxious, short of breath, and proceeded to the emergency room. While in the hospital, he has had intermittent episodes of atrial fibrillation with RVR. He states he feels better and has had significant diuresis. CURRENT HOME MEDICATIONS: Include Entresto, Coreg, potassium, Lasix, Coumadin, simvastatin, temazepam and Aldactone. PAST MEDICAL HISTORY: Hypertension, chronic atrial fibrillation, systolic heart failure, mitral regurgitation, SVT, hyperlipidemia. PAST SURGICAL HISTORY: Surgical history of valve repair in 2012, recent left heart catheterization with normal coronaries in 2018, shoulder surgery, and knee replacement. SOCIAL HISTORY: No current tobacco or alcohol use. ALLERGIES: PENICILLIN. REVIEW OF SYMPTOMS: Ten-point review of systems is reviewed and as above, otherwise negative. PHYSICAL EXAMINATION: GENERAL: Patient is a pleasant male, who is in no acute distress. The patient appears their stated age. VITAL SIGNS: Blood pressure 118/64, pulse 88, temperature 98. NEUROLOGIC: The patient is alert and oriented x3 with no focal neurologic deficits. HEENT: Sclerae without icterus. Mouth has moist mucous membranes with normal pallor. NECK: No JVD. Carotid upstroke brisk. No bruits bilaterally. LUNGS: Mild crackles noted bilaterally. BACK: No scoliosis or kyphosis. HEART: Irregularly irregular. ABDOMEN: Soft, nontender, nondistended. No peritoneal signs present. No hepatosplenomegaly. No abnormal striae. EXTREMITIES: 2+ femoral and 2+ dorsalis pedis pulses. No cyanosis, clubbing, or edema. SKIN: No gross abnormalities. PERTINENT LABORATORY DATA: Hemoglobin 14.5, creatinine 0.87. Troponin negative. BNP of 667 dated 12/30/2018. IMPRESSION: 1. Acute on chronic systolic heart failure. 2. Bronchitis. 3. Moderate to severe mitral regurgitation. 4. Previous mitral valve repair. RECOMMENDATIONS: Continue Lasix at 20 mg IV. He appears to be diuresing. He is also on carvedilol in addition to atorvastatin. We will continue Entresto as prescribed in addition to Coumadin. Anticipate transferring to p.o. Las in the next 1 to 2 days. Job ID: [id number]
[2019-01-02] MEDS ORDERED: Furosemide 20 MG TAB PO SCH (09:00)
--- NOTE | 2019-01-02 09:37 | PDOC.PN ---
- Subjective Encounter Start Date: 01/02/19 Encounter Start Time: 09:35 Patient seen and examined, no new issues or complaints, no family at bedside, all questions answered. - Objective Resuscitation Status - Order Detail: 12/31/18 11:17 Resuscitation Status Routine Resuscitation Status: FULL: Full Resuscitation Vital Signs & Weight: Vital Signs (12 hours) Temp Pulse Resp BP BP BP Pulse Ox 01/02/19 07:20 97.4 F L 101 H 18 124/63 95 01/02/19 07:00 85 16 93 L 01/02/19 06:59 85 16 93 L 01/02/19 06:55 85 16 93 L 01/02/19 06:37 101 H 20 126/77 01/02/19 04:26 97.4 F L 54 L 20 120/74 92 L 01/01/19 23:06 100 18 92 L 01/01/19 21:55 114/70 Weight Weight 238 lb 1.6 oz I&O: 01/01/19 01/02/19 01/03/19 06:59 06:59 06:59 Intake Total 1078 1037.5 Output Total 1675 1600 Balance -597 -562.5 Result Diagrams: 01/01/19 05:23 01/01/19 05:23 Phys Exam - Physical Examination Constitutional: NAD HEENT: PERRLA, moist MMs, sclera anicteric Neck: no nodes, no JVD, supple Respiratory: no wheezing, no rales, no rhonchi Cardiovascular: no significant murmur, no rub, irregular Gastrointestinal: soft, non-tender, no distention, positive bowel sounds Musculoskeletal: pulses present, edema present (trace) Neurological: non-focal, normal sensation Dx/Plan (1) Acute exacerbation of chronic obstructive pulmonary disease (COPD) Code(s): J44.1 - CHRONIC OBSTRUCTIVE PULMONARY DISEASE W (ACUTE) EXACERBATION Status: Acute Comment: Persistent, continue O2 prn, continue Solumedrol/ Duonebs/Dulera, slow improvement (2) Acute on chronic systolic CHF (congestive heart failure) Code(s): I50.23 - ACUTE ON CHRONIC SYSTOLIC (CONGESTIVE) HEART FAILURE Status : Acute Comment: Improved with diuresis, continue Lasix IV, serial I/O's, daily weight (3) Chronic atrial fibrillation with RVR Code(s): I48.2 - CHRONIC ATRIAL FIBRILLATION Status: Chronic Comment: Variable rate noted, continue Coreg (4) Hypercholesteremia Code(s): E78.00 - PURE HYPERCHOLESTEROLEMIA, UNSPECIFIED Status: Chronic (5) Hypertension Code(s): I10 - ESSENTIAL (PRIMARY) HYPERTENSION Status: Chronic - Plan * change lasix to PO today, will monitor for 24 hours * no other changes in plan of care from medicine perspective for now * DC plans in AM if patient is tolerating PO diuretics * case and plan d/w patient at length, he understood and agreed with this plan.
--- NOTE | 2019-01-02 10:05 | PRG ---
DATE OF SERVICE: SUBJECTIVE: Tyrell Mcallister is a 73-year-old gentleman. This morning, awake, alert, and responsive, he is better. OBJECTIVE: VITAL SIGNS: Saturations are 90% on room air, respiratory rate 18, temperature 97, pulse 101, and blood pressure 124/63. CHEST: Decreased breath sounds. Wheezing has much improved. CARDIAC: Normal S1 and S2. No gallops. ABDOMEN: No masses. IMPRESSION: Congestive cardiomyopathy, status post AICD, sleep apnea, asthma. The patient is much improved. Switching over to oral medication. He can probably be discharged home in the next 24 to 48 hours. Encouraged to use his home CPAP. Job ID: [id number]
[2019-01-02] MEDS: Furosemide 40 MG TAB PO SCH ×2 (10:17→14:56)
[2019-01-02] MEDS: Famotidine 20 MG TAB PO SCH ×2 (10:28→20:21)
[2019-01-02] MEDS: Sacubitril 24.5 MG/Valsartan 25.5 MG TABLET PO SCH ×2 (10:29→20:21)
[2019-01-02] MEDS: Carvedilol 6.25 MG TAB PO SCH ×3 (10:29→20:21)
[2019-01-02] MEDS: Acetaminophen 500 MG TAB PO PRN (10:38)
[2019-01-02] MEDS: Phenergan/Codeine 10-6.25mg/5ml UDCUP PO PRN (17:02)
[2019-01-02] MEDS: Warfarin Sodium 5 MG TAB PO SCH (17:03)
[2019-01-02] MEDS: Atorvastatin Calcium 20 MG TAB PO SCH (20:21)
[2019-01-02] MEDS: Temazepam 15 MG CAP PO SCH (20:21)
[2019-01-03] MEDS: Acetaminophen 500 MG TAB PO PRN ×2 (01:07→14:44)
[2019-01-03] MEDS: Phenergan/Codeine 10-6.25mg/5ml UDCUP PO PRN (05:21)
[2019-01-03] MEDS: Budesonide 0.5 MG/2 ML NEB INH SCH ×2 (06:46→18:14)
[2019-01-03] MEDS: Mometasone/Formoterol 120 PUFF INHALER INH SCH ×2 (07:03→18:15)
[2019-01-03] MEDS: Metolazone 2.5 MG TAB PO SCH (09:08)
[2019-01-03] MEDS: Carvedilol 6.25 MG TAB PO SCH ×2 (09:08→21:12)
[2019-01-03] MEDS: Famotidine 20 MG TAB PO SCH ×2 (09:08→21:16)
[2019-01-03] MEDS: Furosemide 40 MG TAB PO SCH ×2 (09:09→14:43)
[2019-01-03] MEDS: Sacubitril 24.5 MG/Valsartan 25.5 MG TABLET PO SCH (09:09)
--- NOTE | 2019-01-03 10:03 | PRG ---
DATE OF SERVICE: 01/03/2019 SUBJECTIVE: This morning, he is better, though he said he is still wheezing a little bit. He has severe intolerance to prednisone, therefore he is not getting any prednisone. OBJECTIVE: VITAL SIGNS: He saturations are 90% on room air, respiratory rate 18, temperature 98, blood pressure 119/73. CHEST: Minimal wheezing. CARDIAC: Normal S1 and S2. No gallops. ABDOMEN: No masses. IMPRESSION: Congestive heart failure, cardiomyopathy,bronchial asthma. From pulmonary standpoint of view, another 24 hours in the hospital, he can then be discharged on present medication. Job ID: [id number] [facility]
--- NOTE | 2019-01-03 10:45 | PDOC.PN ---
- Subjective Encounter Start Date: 01/03/19 Encounter Start Time: 10:43 Patient seen and examined, no new issues or complaints, all questions answered. - Objective Resuscitation Status - Order Detail: 12/31/18 11:17 Resuscitation Status Routine Resuscitation Status: FULL: Full Resuscitation Vital Signs & Weight: Vital Signs (12 hours) Temp Pulse Resp BP BP Pulse Ox 01/03/19 10:42 63 16 92 L 01/03/19 07:53 98.1 F 100 18 119/73 95 01/03/19 06:47 94 L 01/03/19 06:44 95 16 94 L 01/03/19 04:11 97.6 F 74 16 134/73 92 L 01/02/19 23:32 94 L Weight Weight 238 lb 1.6 oz I&O: 01/02/19 01/03/19 01/04/19 06:59 06:59 06:59 Intake Total 1037.5 1030 Output Total 1600 1850 Balance -562.5 -820 Result Diagrams: 01/01/19 05:23 01/01/19 05:23 Phys Exam - Physical Examination Constitutional: NAD HEENT: PERRLA, moist MMs, sclera anicteric Neck: no nodes, no JVD, supple Respiratory: no rales, no rhonchi Cardiovascular: RRR, no significant murmur, no rub Gastrointestinal: soft, non-tender, no distention, positive bowel sounds Musculoskeletal: pulses present, edema present (1+) Dx/Plan (1) Acute exacerbation of chronic obstructive pulmonary disease (COPD) Code(s): J44.1 - CHRONIC OBSTRUCTIVE PULMONARY DISEASE W (ACUTE) EXACERBATION Status: Acute Comment: Persistent, continue O2 prn, continue Solumedrol/ Duonebs/Dulera, slow improvement (2) Acute on chronic systolic CHF (congestive heart failure) Code(s): I50.23 - ACUTE ON CHRONIC SYSTOLIC (CONGESTIVE) HEART FAILURE Status : Acute Comment: Improved with diuresis, continue Lasix IV, serial I/O's, daily weight (3) Chronic atrial fibrillation with RVR Code(s): I48.2 - CHRONIC ATRIAL FIBRILLATION Status: Chronic Comment: Variable rate noted, continue Coreg (4) Hypercholesteremia Code(s): E78.00 - PURE HYPERCHOLESTEROLEMIA, UNSPECIFIED Status: Chronic (5) Hypertension Code(s): I10 - ESSENTIAL (PRIMARY) HYPERTENSION Status: Chronic - Plan * cont with current plan of care * cardio and pulmonary would like 24 hrs more inpatient and DC plans in AM * will monitor for now and plan for discharge in AM per subspecialists recommendation * case and plan d/w patient at length, he understood and agreed with this plan.
[2019-01-03 12:27] LABS: INR-International Normal Ratio 2.3
--- NOTE | 2019-01-03 12:52 | CON ---
DATE OF CONSULTATION: 01/02/2019 SUBJECTIVE: Mr. Mcallister is doing well. He has less shortness of breath. He does complain of mild shortness of breath that has improved. He is ambulating without issues or difficulty. He did have -500 mL total output. His weight has also decreased from 240 to 238. OBJECTIVE: VITAL SIGNS: Blood pressure 129/81, pulse 111, respirations 20. GENERAL: Negative fatigue, weakness, weight loss, fevers or chills. HEENT: Eyes: Negative blurry vision, double vision, loss of vision. Negative tinnitus, hearing loss, sore throat, bloody nose or drainage. PULMONARY: Crackles noted bilaterally. CARDIOVASCULAR: Irregularly irregular. GASTROINTESTINAL: Negative constipation, diarrhea, melena, hematochezia or abdominal pain. GENITOURINARY: Negative dysuria, polyuria, hematuria, difficulty starting/stopping flow. MUSCULOSKELETAL: Negative muscle aches/pains, joint pain, joint swelling. PVD: Negative claudication, calf or buttock pain, hair loss on limbs. NEUROLOGIC: Negative lightheadedness, dizziness, syncope, loss of sensation. PSYCHIATRIC: Negative depression, anxiety, panic attacks, or paranoia. ENDOCRINE: Negative hair loss, coarse skin or temperature intolerance. PERTINENT LABORATORY DATA: Hemoglobin 14.5, hematocrit 43.9. IMPRESSION: 1. Bbiju-ww-mznhbzj systolic heart failure. 2. Mitral valve repair. 3. Bswigrvr-ln-qibbex mitral regurgitation. 4. Atrial fibrillation. 5. Bronchitis. RECOMMENDATIONS: 1. We will add metolazone. 2. Lasix has been increased from 20 IV to 40 IV b.i.d. 3. Continue ambulation. 4. Increase Coreg from 6.25 b.i.d. to t.i.d. Job ID: [id number]
[2019-01-03] MEDS: Warfarin Sodium 5 MG TAB PO SCH (16:54)
[2019-01-03] MEDS: Atorvastatin Calcium 20 MG TAB PO SCH (21:16)
[2019-01-03] MEDS: Temazepam 15 MG CAP PO SCH (21:19)
[2019-01-04] MEDS: Sacubitril 24.5 MG/Valsartan 25.5 MG TABLET PO SCH ×2 (02:03→13:32)
[2019-01-04 04:29] VITALS: TEMP 97.8
[2019-01-04] MEDS: Acetaminophen 500 MG TAB PO PRN (06:29)
[2019-01-04 06:45] LABS: INR-International Normal Ratio 1.9
[2019-01-04] MEDS: Mometasone/Formoterol 120 PUFF INHALER INH SCH (06:57)
[2019-01-04] MEDS: Budesonide 0.5 MG/2 ML NEB INH SCH (06:57)
--- NOTE | 2019-01-04 09:18 | PDOC.CTH ---
Cardiology Progress Note - Subjective patient seen 01/03 at 1430. c/o wheezing. States he's walking in hallway multiple times daily. Anxious about discharge. - Objective Vital Signs Temp Pulse Resp BP Pulse Ox 01/04/19 07:45 97.8 F 94 18 131/81 94 L 01/04/19 06:55 92 18 92 L 01/04/19 04:24 97.8 F 65 14 111/54 L 92 L 01/03/19 22:13 113 H 14 Weight 236 lb 01/03/19 01/04/19 01/05/19 06:59 06:59 07:59 Intake Total 1030 1200 Output Total 1850 4400 Balance -820 -3200 - Physical Examination General/Neuro: alert & oriented x3 Neck: no JVD present Lungs: CTA Heart: other: (IRR) Abdomen: NT/ND - Telemetry Telemetry Rhythm: AF - Labs Result Diagrams: 01/01/19 05:23 01/01/19 05:23 Troponin/CKMB Troponin I Less than 0.010 ng/mL (< 0.028) 12/31/18 03:16 - Assessment/Plan 1. Acute on chronic systolic CHF 2. Asthmatic bronchitis 3. AF Patient overall improved. Will hold tonight and reassess tomorrow. Discharge within 1-2 days if ok with pulmonary.
--- NOTE | 2019-01-04 09:34 | PDOC.CTH ---
Cardiology Progress Note - Subjective Patient with good output and response to zaroxolyn in last 24 hours. -3200cc. Feels better today. No complaints. Walked in [place] multiple times this morning already. - Objective Vital Signs Temp Pulse Resp BP Pulse Ox 01/04/19 07:45 97.8 F 94 18 131/81 94 L 01/04/19 06:55 92 18 92 L 01/04/19 04:24 97.8 F 65 14 111/54 L 92 L 01/03/19 22:13 113 H 14 Weight 236 lb 01/03/19 01/04/19 01/05/19 06:59 06:59 07:59 Intake Total 1030 1200 Output Total 1850 4400 Balance -820 -3200 - Physical Examination General/Neuro: alert & oriented x3 Neck: no JVD present Lungs: CTA Heart: other: (IRR) Abdomen: NT/ND - Telemetry Telemetry Rhythm: AF; intermittent abberancy (ICD in place) - Labs Result Diagrams: 01/01/19 05:23 01/01/19 05:23 Troponin/CKMB Troponin I Less than 0.010 ng/mL (< 0.028) 12/31/18 03:16 - Assessment/Plan 1. Acute on chronic systolic CHF 2. Chronic AF 3. Asthmatic bronchitis 4. s/p ICD Stable. Ok for discharge from my standpoint. Patient has f/u appt on Sunday in our office.
[2019-01-04] MEDS: Metolazone 2.5 MG TAB PO SCH (10:42)
[2019-01-04] MEDS: Furosemide 40 MG TAB PO SCH ×2 (10:43→14:56)
[2019-01-04] MEDS: Famotidine 20 MG TAB PO SCH (10:43)
[2019-01-04] MEDS: Carvedilol 6.25 MG TAB PO SCH (10:43)
[2019-01-04 10:44] VITALS: BP 130/71
--- NOTE | 2019-01-04 11:33 | PDOC.PN ---
- Subjective Encounter Start Date: 01/04/19 Encounter Start Time: 11:31 Mr. Mcallister was seen today in follow-up of shortness of breath. He says he is breathing better. He wants to go home. - Objective Resuscitation Status - Order Detail: 12/31/18 11:17 Resuscitation Status Routine Resuscitation Status: FULL: Full Resuscitation MAR Reviewed: Yes Vital Signs & Weight: Vital Signs (12 hours) Temp Pulse Resp BP BP Pulse Ox 01/04/19 10:57 85 16 93 L 01/04/19 10:43 130/71 01/04/19 07:45 97.8 F 94 18 131/81 94 L 01/04/19 06:55 92 18 92 L 01/04/19 04:24 97.8 F 65 14 111/54 L 92 L Weight Weight 236 lb I&O: 01/03/19 01/04/19 01/05/19 06:59 06:59 07:59 Intake Total 1030 1200 Output Total 1850 4400 Balance -820 -3200 Result Diagrams: 01/01/19 05:23 01/01/19 05:23 Phys Exam - Physical Examination HEENT: PERRLA Respiratory: wheezing present + occasional wheeze, and rales at the bases Cardiovascular: RRR, no significant murmur, no rub Gastrointestinal: soft, non-tender, positive bowel sounds Musculoskeletal: no edema Dx/Plan (1) Acute on chronic systolic CHF (congestive heart failure) Code(s): I50.23 - ACUTE ON CHRONIC SYSTOLIC (CONGESTIVE) HEART FAILURE Status : Acute Comment: Improved with diuresis, continue Lasix IV, serial I/O's, daily weight (2) Chronic anticoagulation Code(s): Z79.01 - USP (CURRENT) USE OF ANTICOAGULANTS Status: Chronic Comment: INR therapeutic currently, continue Coumadin, serial INR (3) Hypertension Code(s): I10 - ESSENTIAL (PRIMARY) HYPERTENSION Status: Chronic (4) COPD (chronic obstructive pulmonary disease) Status: Acute - Plan * Acute on chronic systolic heart failure exacerbation- better compensated * COPD- stable * He has been cleared for discharge by Cardiology.
--- NOTE | 2019-01-04 12:05 | PRG ---
DATE OF SERVICE: 01/04/2019 SUBJECTIVE: This morning, he is better. He wants to go home. OBJECTIVE: VITAL SIGNS: He saturations are 98% room air, respirations 16, temperature 99, blood pressure 130/81. CHEST: Minimal wheezing. CARDIAC: Normal S1 and S2. No gallops. ABDOMEN: No masses. IMPRESSION: 1. Obstructive sleep apnea. 2. Cardiomyopathy. 3. Congestive heart failure. PLAN: He can be discharged home. Prescription was given for DuoNeb and Symbicort. We will see in the office in several weeks. Job ID: [id number]
--- NOTE | 2019-01-06 11:51 | DIS ---
DATE OF ADMISSION: 12/30/2018 DATE OF DISCHARGE: 01/04/2019 PRIMARY CARE PHYSICIAN: Dr. Christiano Maddox. DISCHARGE DISPOSITION: Home. PRIMARY DISCHARGE DIAGNOSES: 1. Acute on chronic systolic heart failure exacerbation. 2. Acute respiratory failure with hypoxemia secondary to acute on chronic systolic heart failure. 3. Chronic respiratory failure secondary to chronic obstructive pulmonary disease. 4. Hypertension. 5. Dyslipidemia. 6. Chronic atrial fibrillation, on Coumadin. 7. Obstructive sleep apnea, with CPAP. DISCHARGE MEDICATIONS: 1. Metolazone was added in 2.5 mg daily as well as Dulera 200/5 mcg 2 puffs twice a day. 2. Levaquin 750 mg p.o. daily for 3 days. 3. Pulmicort 0.5 mg neb twice a day. 4. Coumadin 5 mg daily. 5. Temazepam 15 mg at bedtime. 6. Simvastatin 40 mg at bedtime. 7. Entresto 24 mg/26 twice a day. 8. Lasix 40 mg twice daily. 9. Coreg 6.25 mg twice daily. 10. Alprazolam 0.5 mg as needed. CODE STATUS: Full code. ALLERGIES: TO PENICILLIN AND PREDNISONE. HOSPITAL COURSE: Mr. Mcallister is a pleasant 73-year-old gentleman, who was admitted to the hospital with acute on chronic respiratory failure due to CHF exacerbation. He has systolic heart failure. He was admitted and diuresed. Metolazone was added to his regimen. Also with regard to his COPD, a long-acting beta-agonist as well as steroids was added and he tolerated this. He was seen by both his portfolio strategist as well as his semiconductor assembler and was able to be discharged home in stable condition. He is to follow up with Sara Ch on Sunday and also with his primary care physician in 1 week. Job ID: [id number]
== END 2019-01-04 15:51 | disposition home or self-care (01) | DRG 291 ==
LOC: ERS 20:24 → 2NO 22:09
PROVIDERS: ADMIT Hospitalist; ATTEND Hospitalist
DX: I11.0 Hypertensive heart disease with heart failure (principal); J96.21 Acute and chronic respiratory failure with hypoxia; J44.1 Chronic obstructive pulmonary disease with (acute) exacerbation; I47.1 Supraventricular tachycardia; I50.23 Acute on chronic systolic (congestive) heart failure; I48.2 Chronic atrial fibrillation; I42.8 Other cardiomyopathies; Z79.01 Long term (current) use of anticoagulants; E78.5 Hyperlipidemia, unspecified; I34.0 Nonrheumatic mitral (valve) insufficiency; G47.33 Obstructive sleep apnea (adult) (pediatric); Z95.810 Presence of automatic (implantable) cardiac defibrillator
CPT/HCPCS: 36415; 71046; 80048; 80053; 82550; 83690; 83880; 84484; 85007; 85025; 85027; 85610; 85730; 87040; 87804; 93005; 93798; 94664; 96374; J1940; J1956; J2920; J7620; J7626

== ENCOUNTER 2019-02-07 09:55 | Day surgery (SDC) | payer MEDICARE ==
[2019-02-06 13:25] VITALS: BMI 33.7
[2019-02-07 12:19] LABS: #Eosinphils 0.1 thou/uL (0.0-0.7); #Monocytes 0.7 thou/uL (0.11-0.59); #Neutrophils 3.8 thou/uL (1.40-6.50); %Basophils 0.6 % (0.0-1.0); %Eosinophils 0.8 % (0.0-10.0); %Lymphocytes 30.5 % (21.0-51.0); %Monocytes 10.3 % (0.0-10.0); %Neutrophils 57.9 % (42.0-75.0); Hemoglobin 15.2 g/dL (14.0-18.0); Mean Corpuscular HGB CONC 33.7 g/dL (32.0-36.0); Mean Corpuscular Hemoglobin 29.4 pg (27.0-31.0); Mean Corpuscular Volume 87.3 fL (78.0-98.0); Mean Platelet Volume 8.7 fL (7.4-10.4); Platelet Count 201 thou/uL (130-400); RBC Distribution Width 13.1 % (11.5-14.5); Red Blood Cell (RBC) Count 5.17 mill/uL (4.70-6.10); White Blood Cell (WBC) Count 6.6 thou/uL (4.8-10.8)
[2019-02-07 12:26] LABS: INR-International Normal Ratio 3.1; PTT 45.6 SEC (22.9-36.1); Prothrombin Time 31.8 SEC (12.0-14.7)
[2019-02-07 12:41] LABS: Anion Gap 13 mmol/L (10-20); BUN (Urea Nitrogen) 18 mg/dL (8.4-25.7); Calc. Creatinine Clearance 107 mL/min (70-130); Calcium 9.4 mg/dL (7.8-10.44); Carbon Dioxide 30 mmol/L (23-31); Chloride 101 mmol/L (98-107); Estimated GFR-MDRD 84; Glucose 99 mg/dL (83-110); Potassium 3.9 mmol/L (3.5-5.1); Sodium 140 mmol/L (136-145)
--- NOTE | 2019-02-07 17:20 | OP ---
DATE OF PROCEDURE: 02/07/2019 PROCEDURES PERFORMED: Internal and external cardioversion. REASON FOR PROCEDURE: Mr. Mcallister is a pleasant 73-year-old man with prior history of mitral valve repair and persistent atrial fibrillation, post pulmonary venous isolation procedure, dual-chamber ICD in place. OMARI prior to procedure demonstrating no intracardiac clots. DESCRIPTION OF PROCEDURE: The patient received propofol by Anesthesia specialist. After adequate level of sedation achieved, a synchronized 35 joule internal shock failed to convert the patient back to sinus rhythm. At this point, a followup external 300 joule shock converted the patient back to sinus rhythm. ICD function verified pre and post procedure. PLAN: Continue sotalol therapy and warfarin anticoagulation. Job ID: [id number]
--- NOTE | 2019-02-07 20:52 | ECHO ---
REQUESTING PHYSICIAN: Dr. Jayesh Darnell REASON FOR PROCEDURE: The patient is a 73-year-old male with prior history of CHF, nonischemic cardiomyopathy, atrial fibri llation, mitral valve repair in the past. He is post pulmonary ------ procedure. He after Sotalol octavio ding and he is here for a planned OMARI to rule out intracardiac clots since Sotalol anticoagulation. PROCEDURE: The patient received propofol by Anesthesia specialist. After adequate level of sedation achieved, a standard transesophageal echocardiogram probe was passed into the esophagus without diff iculty. Patient tolerated the procedure well, no complications noted. RESULTS: Left atrium is moderately enlarged about 4.2 cm in horizontal diameter. The left atrial appendage we ll visualized contains no clots. The left atrial appendage velocities were about 20 cm per second. Sp ontaneous echo contrast seen throughout the left atrium. Four out of four pulmonary veins were seen w ithout stenosis. No systolic reversal seen either. Mild central mitral regurgitation noted in the lef t atrium. The mitral valve is status post repair with adequate opening and closing. The left ventricu lar function is mildly reduced. LVEF is estimated to be 40-45%. Right chambers with pacemaker wires i n it. Pericardial space with possibly old organized pericardial material, but no evidence of fresh ef fusion or tamponade is noted. Aortic valve has three leaflets without regurgitation or stenosis. Tric uspid valve is without regurgitation. Pulmonary valve is not well visualized and appears to be normal . The visualized portion of ascending and descending aorta without aneurysm, dissection or atheroma. CONCLUSION: 1. No intracardiac clots. 2. Mild to moderately enlarged left atrium. 3. Mild mitral regurgitation, adequately repaired mitral valve. 4. Mildly reduced LV systolic function with LVEF 40-45%. 5. Pericardial thickening of possible organized material is noted. No evidence of tamponade. PLAN: Proceed with cardioversion.
== END 2019-02-07 14:52 | disposition home or self-care (01) ==
LOC: SDC 09:55
PROVIDERS: ATTEND Internal Medicine Cardiovascular Disease
PROC: 5A2204Z Restoration of Cardiac Rhythm, Single (ICD-10-PCS; principal; 2019-02-07)
DX: I48.1 Persistent atrial fibrillation (principal); Z79.01 Long term (current) use of anticoagulants; Z79.899 Other long term (current) drug therapy; Z88.0 Allergy status to penicillin; Z88.8 Allergy status to other drugs, medicaments and biological substances
CPT/HCPCS: 80048; 85025; 85610; 85730; 92960; 93005; 93010; 93312

== ENCOUNTER 2019-04-28 10:05 | Outpatient (CLI) | payer MEDICARE ==
--- NOTE | 2019-04-28 11:18 | CT ---
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 Generalized dis c osteophytosis and facet arthrosis changes. T12-L1: Disc degeneration without significant stenosis L1-L2: Disc osteophytosis with mild lateral recess stenosis without significant foraminal stenosis. L2-L3: Diffuse disc osteophytosis with moderate central canal and lateral recess stenosis and foramin al stenosis worse on the left side. L3-L4: Moderate central canal and moderate to severe lateral recess stenosis with moderate bilateral foraminal stenosis worse on the left side. L4-L5: Disc osteophytosis. Right paracentral focal herniation containing gas with right lateral reces s stenosis and bilateral foraminal stenosis worse on the right. L5-S1: Diffuse disc osteophytosis with moderate left lateral recess stenosis and moderate to severe b ilateral foraminal stenosis with a small focal right paracentral protrusion containing gas. No evidence for acute fracture or dislocation. No focal bone lesion. IMPRESSION: Multilevel variable severity canal, lateral recess, and foraminal stenosis of the lumbar spine.
== END 2019-04-28 10:06 | disposition home or self-care (01) ==
LOC: BICCT 10:05
PROVIDERS: ATTEND Orthopaedic Surgery
DX: M54.32 Sciatica, left side (principal); M48.061 Spinal stenosis, lumbar region without neurogenic claudication
CPT/HCPCS: 72131

== ENCOUNTER 2019-07-01 07:46 | Emergency (ER) | payer MEDICARE ==
[2019-07-01] MEDS ORDERED: Metoclopramide HCl 10 MG/2 ML VIAL ONE (08:42)
[2019-07-01] MEDS ORDERED: diphenhydrAMINE 50 MG/ML VIAL ONE (08:42)
--- NOTE | 2019-07-01 10:08 | CT ---
BRAIN CT WITHOUT IV CONTRAST: HISTORY: Headache. COMPARISON: 10/11/2016. FINDINGS: Evidence for prior nasal sinal surgery. Mucosal disease in the left maxillary, left ethmoidal, and l eft frontal sinus progressive from prior study. Bilateral maxillary sinus sclerosis and opacificatio n progressive from prior study. No focal mass or midline shift. No intra- or extraaxial hemorrhage. IMPRESSION: No significant acute intracranial process. Sinus mucosal disease and mastoid opacification. POS: [facility]
[2019-07-01] MEDS ORDERED: Ondansetron PF 4 MG/2 ML Vial ONE (10:16)
[2019-07-01] MEDS ORDERED: Morphine 4 MG/ML VIAL ONE (10:16)
== END 2019-07-01 10:50 | disposition home or self-care (01) ==
LOC: ERS 07:46
DX: J32.9 Chronic sinusitis, unspecified (principal); I49.9 Cardiac arrhythmia, unspecified; I48.91 Unspecified atrial fibrillation; I10 Essential (primary) hypertension; Z79.899 Other long term (current) drug therapy; Z79.01 Long term (current) use of anticoagulants; Z79.51 Long term (current) use of inhaled steroids
CPT/HCPCS: 70450; 96365; 96375; J1200; J2270; J2405; J2765

== ENCOUNTER 2019-07-02 14:29 | Outpatient (CLI) | payer MEDICARE | END 2019-07-02 14:30 | disposition home or self-care (01) | LOC: CTENTCT 14:29 | PROVIDERS: ATTEND Specialist | DX: R51 Headache (principal) | CPT/HCPCS: 70486 ==

== ENCOUNTER 2019-10-12 07:20 | Inpatient (IN) | payer MEDICARE ==
[2019-10-12 08:15] LABS: Mean Corpuscular HGB CONC 33.6 g/dL (32.0-36.0); Mean Corpuscular Hemoglobin 30.6 pg (27.0-31.0); Mean Corpuscular Volume 91.2 fL (78.0-98.0); Mean Platelet Volume 7.8 fL (7.4-10.4); Platelet Count 147 thou/uL (130-400); RBC Distribution Width 12.7 % (11.5-14.5); Red Blood Cell (RBC) Count 4.91 mill/uL (4.70-6.10); White Blood Cell (WBC) Count 6.2 thou/uL (4.8-10.8)
[2019-10-12 08:25] LABS: ALT (SGPT) 13 U/L (8-55); AST (SGOT) 17 U/L (5-34); Albumin 4.5 g/dL (3.4-4.8); Alkaline Phosphatase 69 U/L (40-110); Anion Gap 12 mmol/L (10-20); BUN (Urea Nitrogen) 11 mg/dL (8.4-25.7); Bilirubin, Total 1.6 mg/dL (0.2-1.2); Calc. Creatinine Clearance 0 mL/min (70-130); Calcium 9.7 mg/dL (7.8-10.44); Carbon Dioxide 30 mmol/L (23-31); Chloride 103 mmol/L (98-107); Estimated GFR-MDRD 76; Globulin 2.4 g/dL (2.4-3.5); Glucose 112 mg/dL (83-110); Potassium 4.4 mmol/L (3.5-5.1); Protein, Total 6.9 g/dL (5.8-8.1); Sodium 141 mmol/L (136-145)
[2019-10-12] MEDS ORDERED: Furosemide 40 MG/4 ML VIAL ONE (08:33)
[2019-10-12 08:42] LABS: Band 1 % (5-11); Eosinophils 2 % (0-10); Hypersemented Neutrophil SLIGHT; Large Platelets SLIGHT; Lymphocytes 10 % (21-51); MDiff Complete? YES; Monocytes 16 % (0-10); Neutrophil 67 % (42-75); Platelet Morphology Comment Appears Adequate; Reactive Lymphocytes 4 % (0-10); Vacuoles SLIGHT
--- NOTE | 2019-10-12 09:43 | RAD ---
CHEST 1 VIEW PORTABLE: HISTORY: Cough. COMPARISON: 12/30/2018. FINDINGS: Postop midline sternotomy. Left ICD. No confluent pneumonia, acute edema, pleural effusion, or othe r acute process. IMPRESSION: No acute process. Stable exam. No evidence for pneumonia. POS: [facility]
[2019-10-12] MEDS ORDERED: predniSONE 20 MG TAB ONE (12:04)
[2019-10-12 12:44] LABS: Troponin I Less than 0.010 ng/mL (< 0.028)
[2019-10-12 15:36] LABS: Troponin I Less than 0.010 ng/mL (< 0.028)
[2019-10-12] MEDS ORDERED: Ondansetron PF 4 MG/2 ML Vial IVP PRN (16:44)
[2019-10-12] MEDS ORDERED: predniSONE 20 MG TAB PO SCH (17:00)
[2019-10-12 17:30] VITALS: BMI 34.3
[2019-10-12 18:31] LABS: Troponin I Less than 0.010 ng/mL (< 0.028)
[2019-10-12] MEDS: Furosemide 40 MG/4 ML VIAL SLOW IVP SCH ×2 (18:32→20:32)
[2019-10-12] MEDS: Mometasone/Formoterol 120 PUFF INHALER INH SCH (19:48)
[2019-10-12] MEDS: Carvedilol 25 MG TAB PO SCH (20:34)
[2019-10-12] MEDS: Sotalol HCl 80 MG TAB PO SCH (20:34)
[2019-10-12] MEDS: Simvastatin 40 MG TAB PO SCH (20:34)
[2019-10-12] MEDS: Temazepam 15 MG CAP PO SCH (21:06)
[2019-10-13] MEDS: ALPRAZolam 0.5 MG TAB PO PRN ×2 (00:11→21:27)
[2019-10-13] MEDS: Benzonatate 100 MG CAP PO PRN ×2 (00:11→21:27)
[2019-10-13] MEDS: Furosemide 40 MG/4 ML VIAL SLOW IVP SCH ×2 (05:21→14:53)
[2019-10-13 06:08] LABS: INR-International Normal Ratio 1.7; Prothrombin Time 19.7 SEC (12.0-14.7)
[2019-10-13] MEDS: Mometasone/Formoterol 120 PUFF INHALER INH SCH ×2 (07:08→20:07)
--- NOTE | 2019-10-13 07:45 | HP ---
PRIMARY CARE PHYSICIAN: Dr. Maddox. SLITTER CUT OFF OPERATOR: Dr. Darnell. DIESEL RETROFIT INSTALLER: Dr. Mendez. CHIEF COMPLAINT: Cough and wheezing x3 to 4 days. HISTORY OF PRESENT ILLNESS: This is a 74-year-old male with past medical history of systolic congestive heart failure with dual-chamber AICD, atrial fibrillation with multiple prior failed ablations on Coumadin, mitral valve repair, possible COPD on Symbicort, who presented to [facility] ER for a 4-day history of persistent cough and wheezing episodes associated with orthopnea and diminished functional status and incomplete ability of taking a breath prompting further ER evaluation. The patient denies any recent sick contacts and notes that symptoms were preceded by possible postnasal drip. He reports a 6-pound weight gain in the last 24 hours. He is compliant with home medications including daily torsemide and denied any complaints of peripheral edema or angina. In ER, CBC and chemistries were unremarkable. BNP was 300. One-view chest x-ray was unremarkable. The patient was administered nebulized bronchodilators. He also reports receiving prednisone and IV diuretics with significant diuresis, although not documented. He was admitted for further observation. At bedside, the patient accompanied by his spouse. He notes ongoing cough with significant wheezing. He received influenza vaccine this season. 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 Noted ER documentation of patient tachycardiac on exertion from 80s to 130s and notably in atrial fibrillation. The patient sitting upright in chair at bedside and reports he has to stay in this position for the past several days. Denies any complaints of fevers, chills, nausea, vomiting, diarrhea, myalgias, or changes in energy. PAST MEDICAL HISTORY: Chronic systolic congestive heart failure, atrial fibrillation with multiple failed ablations and cardioversions, mitral valve repair, hypertension, possible COPD. PAST SURGICAL HISTORY: Mitral valve repair, atrial fibrillation ablations with cardioversion, bilateral total knee arthroplasty, shoulder surgery. SOCIAL HISTORY: The patient is , lives at home with his spouse. Denies tobacco or alcohol use. Denies home oxygen use. Compliant with nightly CPAP. Ambulatory without assistive devices. ALLERGIES: TO PREDNISONE CAUSING TACHYCARDIA AND PENICILLIN. REVIEW OF SYSTEMS: Pertinent positives as per HPI. Remainder of review of systems is otherwise negative. MEDICATIONS: Home medications will be reviewed as per admission medication reconciliation including; 1. Sotalol 80 mg b.i.d. 2. Entresto b.i.d. 3. Coreg 12.5 mg b.i.d. 4. Coumadin 5 mg daily. 5. Torsemide 20 mg daily. 6. Symbicort 2 puffs twice daily. 7. P.r.n. Xanax. 8. Nightly simvastatin. FAMILY HISTORY: The patient denies any chronic medical comorbidities in family members. PHYSICAL EXAMINATION: VITAL SIGNS: Temperature maximum 97.9, pulse 80 and atrial fibrillation, blood pressure 140/89, oxygen saturation 96% on room air, respirations 18. GENERAL APPEARANCE: This is an elderly male, who is sitting upright in chair, speaking in full complete sentences with intermittent cough and wheezing episodes. HEENT: Normocephalic and atraumatic. No facial asymmetry. Mucous membranes appear moist. NECK: Supple. CARDIOVASCULAR SYSTEM: S1 and S2, irregularly irregular. Median sternotomy scar noted. Systolic murmur appreciated. No reproducible chest wall tenderness. LUNGS: Poor air entry on bilateral posterior auscultation with intermittent bronchospasms. ABDOMEN: Soft, nontender, and nondistended. EXTREMITIES: There is 1+ bilateral lower extremity pitting edema. No cyanosis or deformities. SKIN: Warm to touch without rash, pallor, or abrasion. LABORATORY VALUES: Troponin I negative x2. WBC 6.2, H and H 15/44.7, platelets 147. BNP 300. Sodium 141, potassium 4.4, chloride 103, bicarb 30, glucose 112 , BUN and creatinine 11/0.96, GFR is 76. IMAGING STUDIES: One-view chest x-ray on 10/12/2019 suggest no acute process with no evidence for pneumonia. ASSESSMENT: 1. Dyspnea with wheezing of unspecified etiology. The patient will be admitted to observation status and placed on telemetry monitoring. We will need to exclude cardiogenic etiology from known history of chronic systolic congestive heart failure and atrial fibrillation and reported peripheral edema with weight gain with congestive heart failure contribution to symptoms. We will also need to exclude acute bronchospasm and exacerbation of chronic pulmonary obstructive disease contributing to the patient's symptoms. Unfortunately, the patient's reported allergy to prednisone causing tachycardia and hesitation to take steroids limits intervention. We will continue on IV loop diuretics, scheduled nebulized bronchodilators. Obtain respiratory pathogen panel, continue as needed oxygen modalities via nasal cannula and monitor for the patient's symptoms improvement. We will start supportive care with as needed antitussive agents. The patient received influenza vaccine this season. We will consult the patient's museum exhibit technician and awning frame maker, both established for further recommendations and interventions. Home medications will be restarted once entered and appropriately reconciled. We will check INR level in a.m. Plan of care discussed with patient and his spouse at bedside. 2. Possible acute on chronic systolic congestive heart failure exacerbation. Continue IV loop diuretics. Consultation with museum exhibit technician. Continue home medications. Monitor for atrial fibrillation, rate control. 3. Persistent atrial fibrillation, currently rate controlled but reportedly tachycardiac with minimal exertion. Continue home rate control and rhythm control and oral vitamin K antagonist. Check iron in a.m.The patient has history of prior multiple failed ablations and cardioversions as most recently in January of 2019. He reports his symptoms have started after a prior mitral valve repair. 4. Chronic obstructive pulmonary disease exacerbation with bronchospasm. Start low-dose oral prednisone despite the patient's reported intolerance and continue scheduled nebulized bronchodilator and obtain respiratory pathogen panel and monitor per patient's symptom improvement. Restart inhaled corticosteroids/long-acting bronchodilating agent. Consult the patient's awning frame maker. 5. History of mitral valve repair. 6. History of multiple orthopedic surgeries. Deep vein thrombosis prophylaxis: Oral anticoagulation. Disposition: The patient will be admitted to observation status and placed on telemetry monitoring. Job ID: [id number] MTDD
[2019-10-13] MEDS: Carvedilol 25 MG TAB PO SCH ×2 (09:40→21:28)
[2019-10-13] MEDS: Sotalol HCl 80 MG TAB PO SCH ×2 (09:40→21:27)
--- NOTE | 2019-10-13 10:11 | CON ---
DATE OF CONSULTATION: HISTORY OF PRESENT ILLNESS: Tyrell Mcallister is a 74-year-old gentleman, well known to me, who presented to the hospital yesterday evening with shortness of breath, coughing, wheezing, and unresponsive to his usual home medication. He arrived to the room at about 6 p.m. I have been consulted regarding pulmonary status. He denies any fevers, chills, sweats, or hemoptysis. X-ray in the ER was unremarkable. PAST MEDICAL HISTORY: Well outlined; congestive heart failure, status post AICD. History of chronic asthma, COPD, atrial fibrillation, and hypertension. Previous sleep apnea diagnosis. PAST SURGICAL HISTORY: Previous surgeries, mitral valve repair. Multiple cardioversion. Bilateral total knee surgery replacement and sinus surgery. ALLERGIES: PENICILLIN. HOME MEDICATIONS: Includes; 1. Symbicort. 2. Coumadin 5. 3. Zocor 40. 4. DuoNeb. 5. Xanax. 6. Demadex. 7. Potassium. 8. Sotalol 80. 9. Entresto. PHYSICAL EXAMINATION: GENERAL: He is in no acute distress. VITAL SIGNS: His saturations are 94% on room air, respirations 20, temperature 98, pulse 81, and blood pressure 133/75. CHEST: Minimal wheezing. CARDIAC: Normal S1 and S2. No gallops. ABDOMEN: No masses. ASSESSMENT AND PLAN: 1. Chronic obstructive pulmonary disease and bronchitis exacerbation. 2. Congestive heart failure and sleep apnea. Most of his problems are cardiac. Not clearly he is wheezing for Pulmonary standpoint of view. Put him on scheduled neb treatments, steroids, and Dulera. We will follow. Job ID: [id number]
--- NOTE | 2019-10-13 11:45 | PDOC.HOSPP ---
- Subjective Encounter Date: 10/13/19 Encounter Time: 11:43 Subjective: sob with any exertion - Objective Vital Signs & Weight: Vital Signs (12 hours) Temp Pulse Resp BP BP Pulse Ox 10/13/19 10:09 84 16 95 10/13/19 09:40 81 10/13/19 07:16 98.6 F 81 20 133/75 94 L 10/13/19 07:08 61 16 96 10/13/19 03:28 98.0 F 80 18 144/87 H 97 10/13/19 00:14 98.1 F 88 20 123/81 94 L Weight Weight 229 lb 11.2 oz I&O: 10/12/19 10/13/19 10/14/19 06:59 06:59 06:59 Intake Total 480 Output Total 1500 Balance -1020 Result Diagrams: 10/12/19 07:51 10/12/19 07:50 Hospitalist ROS - Medication Medications: Active Medications Generic Name Dose Route Start Last Admin Trade Name Freq PRN Reason Stop Dose Admin Albuterol/Ipratropium 3 ml 10/12/19 16:47 10/13/19 04:00 Duoneb EZPAP 3 ml [id number] PRN Administration SOB &/or Wheezing Albuterol/Ipratropium 3 ml 10/13/19 11:00 10/13/19 10:09 Duoneb NEB 3 ml [id number] SMITH Administration Alprazolam 0.5 mg 10/12/19 16:50 10/13/19 00:11 Xanax PO 0.5 mg DAILYPRN PRN Administration Anxiety Benzonatate 200 mg 10/12/19 16:53 10/13/19 00:11 Tessalon PO 200 mg TIDPRN PRN Administration Cough Carvedilol 12.5 mg 10/12/19 21:00 10/13/19 09:40 Coreg PO 12.5 mg BID SMITH Administration Furosemide 40 mg 10/13/19 06:00 10/13/19 05:21 Lasix SLOW IVP 40 mg 0600,1400 SMITH Administration Mometasone Furoate/Formoterol Fumar 2 puff 10/12/19 18:30 10/13/19 07:08 Dulera 200 Mcg/5 Mcg Inhaler INH 2 puff BID-RT SMITH Administration Sacubitril/Valsartan 1 tab 12/15/19 21:00 10/13/19 09:40 Entresto 24 Mg-26 Mg Tablet PO 1 tab BID SMITH Administration Simvastatin 40 mg 10/12/19 21:00 10/12/19 20:34 Zocor PO 40 mg HS SMITH Administration Sotalol HCl 80 mg 10/12/19 21:00 10/13/19 09:40 Betapace PO 80 mg BID SMITH Administration Temazepam 15 mg 10/12/19 21:00 10/12/19 21:06 Restoril PO 15 mg HS SMITH Administration - Exam General Appearance: awake alert Neck: no JVD Heart: irregular, murmur present, II/IV Respiratory - other findings: expiratory wheezes , all gil[place] Gastrointestinal: soft, normal bowel sounds Extremities: no edema Hosp A/P (1) Acute exacerbation of chronic obstructive pulmonary disease (COPD) Code(s): J44.1 - CHRONIC OBSTRUCTIVE PULMONARY DISEASE W (ACUTE) EXACERBATION Status: Acute (2) Acute on chronic systolic CHF (congestive heart failure) Code(s): I50.23 - ACUTE ON CHRONIC SYSTOLIC (CONGESTIVE) HEART FAILURE Status : Acute (3) Chronic anticoagulation Code(s): Z79.01 - LOOM FIXER (CURRENT) USE OF ANTICOAGULANTS Status: Chronic (4) H/O mitral valve repair Code(s): Z98.890 - OTHER SPECIFIED POSTPROCEDURAL STATES Status: Chronic (5) Hypercholesteremia Code(s): E78.00 - PURE HYPERCHOLESTEROLEMIA, UNSPECIFIED Status: Chronic (6) Hypertension Code(s): I10 - ESSENTIAL (PRIMARY) HYPERTENSION Status: Chronic (7) Atrial fibrillation with rapid ventricular response Code(s): I48.91 - UNSPECIFIED ATRIAL FIBRILLATION Status: Acute - Plan anticoag subtherapeutic- increase warfarin cont nebs, steroids, dulera ECHO, cont iv lasix, po enterto discuss with pulmonology, cardiology
[2019-10-13 14:32] LABS: Hemoglobin 15.7 g/dL (14.0-18.0); Platelet Count 158 thou/uL (130-400)
[2019-10-13] MEDS: Acetaminophen 325 MG TAB PO PRN (14:52)
[2019-10-13] MEDS ORDERED: Warfarin Sodium 5 MG TAB PO SCH (17:00)
[2019-10-13] MEDS: Temazepam 15 MG CAP PO SCH (21:27)
[2019-10-13] MEDS: Simvastatin 40 MG TAB PO SCH (21:27)
[2019-10-14] MEDS: Acetaminophen 325 MG TAB PO PRN (01:03)
[2019-10-14] MEDS: Furosemide 40 MG/4 ML VIAL SLOW IVP SCH ×2 (05:54→13:00)
[2019-10-14] MEDS: Mometasone/Formoterol 120 PUFF INHALER INH SCH ×2 (07:00→19:30)
[2019-10-14] MEDS: Sotalol HCl 80 MG TAB PO SCH ×2 (08:28→20:22)
[2019-10-14] MEDS: Carvedilol 25 MG TAB PO SCH ×2 (08:28→20:22)
[2019-10-14] MEDS: predniSONE 20 MG TAB PO SCH (08:28)
[2019-10-14 09:42] LABS: INR-International Normal Ratio 1.3; Prothrombin Time 16.6 SEC (12.0-14.7)
--- NOTE | 2019-10-14 10:38 | PRG ---
DATE OF SERVICE: 10/14/2019 SUBJECTIVE: This morning, the patient is better, less cough, less shortness of breath, and less wheezing. OBJECTIVE: VITAL SIGNS: Temperature 97, pulse 94, respiratory rate 18, saturations 93% on room air, blood pressure 114/64. CHEST: No wheezing or crackles. CARDIAC: Normal S1, S2. No gallops. ABDOMEN: No masses. IMPRESSION: Chronic obstructive pulmonary disease exacerbation, congestive heart failure, supraventricular tachycardia. He is stable enough to be discharged home. I gave him a prescription for a tapering dose of prednisone. Job ID: [id number]
--- NOTE | 2019-10-14 11:29 | PDOC.HOSPP ---
- Subjective Encounter Date: 10/14/19 Encounter Time: 11:28 Subjective: much less sob - Objective Vital Signs & Weight: Vital Signs (12 hours) Temp Pulse Resp BP Pulse Ox 10/14/19 10:44 82 20 94 L 10/14/19 08:00 97.7 F 94 18 114/64 93 L 10/14/19 06:59 88 20 94 L 10/14/19 04:00 97.3 F L 85 20 123/65 95 10/14/19 01:05 97.8 F 92 18 135/81 96 Weight Weight 229 lb 6.4 oz I&O: 10/13/19 10/14/19 10/15/19 06:59 06:59 06:59 Intake Total 480 1414 Output Total 5770 9435 Balance -2014 -246 Result Diagrams: 10/13/19 14:22 10/12/19 07:50 Hospitalist ROS - Medication Medications: Active Medications Generic Name Dose Route Start Last Admin Trade Name Freq PRN Reason Stop Dose Admin Acetaminophen 650 mg 10/13/19 14:47 10/14/19 01:03 Tylenol PO 650 mg Q6H PRN Administration Headache/Fever or Pain Albuterol/Ipratropium 3 ml 10/12/19 16:47 10/13/19 04:00 Duoneb EZPAP 3 ml [id number] PRN Administration SOB &/or Wheezing Albuterol/Ipratropium 3 ml 10/13/19 11:00 10/14/19 10:44 Duoneb NEB 3 ml [id number] SMITH Administration Alprazolam 0.5 mg 10/12/19 16:50 10/13/19 21:27 Xanax PO 0.5 mg DAILYPRN PRN Administration Anxiety Benzonatate 200 mg 10/12/19 16:53 10/13/19 21:27 Tessalon PO 200 mg TIDPRN PRN Administration Cough Carvedilol 12.5 mg 10/12/19 21:00 10/14/19 08:28 Coreg PO 12.5 mg BID SMITH Administration Furosemide 40 mg 10/13/19 06:00 10/14/19 05:54 Lasix SLOW IVP 40 mg 0600,1400 SMITH Administration Mometasone Furoate/Formoterol Fumar 2 puff 10/12/19 18:30 10/14/19 07:00 Dulera 200 Mcg/5 Mcg Inhaler INH 2 puff BID-RT SMITH Administration Prednisone 20 mg 10/14/19 08:00 10/14/19 08:28 Prednisone PO 20 mg QAM-WM SMITH Administration Sacubitril/Valsartan 1 tab 10/12/19 21:00 10/14/19 08:28 Entresto 24 Mg-26 Mg Tablet PO 1 tab BID SMITH Administration Simvastatin 40 mg 10/12/19 21:00 10/13/19 21:27 Zocor PO 40 mg HS SMITH Administration Sotalol HCl 80 mg 10/12/19 21:00 10/14/19 08:28 Betapace PO 80 mg BID SMITH Administration Temazepam 15 mg 10/12/19 21:00 10/13/19 21:27 Restoril PO 15 mg HS SMITH Administration Warfarin Sodium 5 mg 10/13/19 17:00 10/13/19 16:38 Coumadin PO 5 mg 1700 SMITH Administration - Exam General Appearance: awake alert Neck: no JVD Heart: RRR, no murmur Respiratory - other findings: still has mild expiratory rales Gastrointestinal: soft, normal bowel sounds Extremities: no edema Hosp A/P (1) Acute exacerbation of chronic obstructive pulmonary disease (COPD) Code(s): J44.1 - CHRONIC OBSTRUCTIVE PULMONARY DISEASE W (ACUTE) EXACERBATION Status: Acute (2) Acute on chronic systolic CHF (congestive heart failure) Code(s): I50.23 - ACUTE ON CHRONIC SYSTOLIC (CONGESTIVE) HEART FAILURE Status : Acute (3) Chronic anticoagulation Code(s): Z79.01 - MENSWEAR SALESPERSON (CURRENT) USE OF ANTICOAGULANTS Status: Chronic (4) H/O mitral valve repair Code(s): Z98.890 - OTHER SPECIFIED POSTPROCEDURAL STATES Status: Chronic (5) Hypercholesteremia Code(s): E78.00 - PURE HYPERCHOLESTEROLEMIA, UNSPECIFIED Status: Chronic (6) Hypertension Code(s): I10 - ESSENTIAL (PRIMARY) HYPERTENSION Status: Chronic Qualifiers: Hypertension type: essential hypertension Qualified Code(s): I10 - Essential (primary) hypertension (7) Atrial fibrillation with rapid ventricular response Code(s): I48.91 - UNSPECIFIED ATRIAL FIBRILLATION Status: Acute - Plan anticoag subtherapeutic- increase warfarin cont nebs, steroids, dulera ECHO, cont iv lasix, po enterto discuss with pulmonology, cardiology
[2019-10-14] MEDS ORDERED: Warfarin Sodium 7.5 MG TAB PO SCH (17:00)
--- NOTE | 2019-10-14 17:04 | PRG ---
DATE OF SERVICE: 10/14/2019 SUBJECTIVE: Mr. Mcallister is doing well. He feels much better. He states he is back to baseline. OBJECTIVE: VITAL SIGNS: Blood pressure 118/73, pulse 91, and temperature 98.6. LUNGS: Mild wheezing bilaterally. HEART: Regular rate and rhythm. ABDOMEN: Soft, nontender, and nondistended. EXTREMITIES: Mild edema. IMPRESSION: 1. Bronchitis. 2. Chronic systolic heart failure. 3. Status post mitral valve repair. 4. Status post implantable cardioverter-defibrillator. 5. Chronic atrial fibrillation. RECOMMENDATIONS: 1. Continue Coreg, Entresto, and Zocor, in addition to Coumadin. 2. Aspirin not indicated. 3. Continue pulmonary support per Dr. Mendez. Otherwise, I have no recommendations. It would be okay from my standpoint to discharge home with close outpatient followup. Job ID: [id number]
--- NOTE | 2019-10-14 17:20 | CON ---
DATE OF CONSULTATION: REASON FOR CONSULTATION: Shortness of breath. HISTORY OF PRESENT ILLNESS: Mr. Mcallister is a 74-year-old gentleman with history of severe mitral regurgitation, status post repair, in addition to nonischemic cardiomyopathy, status post ICD placement, who recently had increased weight gain in addition to upper respiratory infection. No chest pain or pressure noted. During my visit and after Lasix, he feels much better. No nausea, vomiting, fevers, or chills present. He was recently diagnosed with bronchitis. PAST MEDICAL HISTORY: As above including chronic atrial fibrillation, obstructive sleep apnea, hyperlipidemia, hypertension, valve repair, right shoulder surgery, knee replacement, ICD placement, and sinus surgery. HOME MEDICATIONS: Include: 1. Torsemide. 2. Potassium. 3. Sotalol. 4. Coreg. 5. Coumadin. 6. Xanax. 7. Simvastatin. 8. Temazepam. 9. Symbicort. 10. Entresto. 11. Losartan. REVIEW OF SYSTEMS: A 10-point review of systems is reviewed and as above, otherwise negative. PHYSICAL EXAMINATION: GENERAL: Patient is a pleasant 74-year-old gentleman, who is in no acute distress. The patient appears their stated age. VITAL SIGNS: Blood pressure 133/75, pulse 81, temperature afebrile. NEUROLOGIC: The patient is alert and oriented x3 with no focal neurologic deficits. HEENT: Sclerae without icterus. Mouth has moist mucous membranes with normal pallor. NECK: No JVD. Carotid upstroke brisk. No bruits bilaterally. LUNGS: Clear to auscultation with unlabored respirations. BACK: No scoliosis or kyphosis. CARDIAC: Regular rate and rhythm with normal S1 and S2. No S3 or S4 noted. No significant rubs, murmurs, thrills, or gallops noted throughout the precordium. PMI is not displaced. There is no parasternal heave. ABDOMEN: Soft, nontender, nondistended. No peritoneal signs present. No hepatosplenomegaly. No abnormal striae. EXTREMITIES: 2+ femoral and 2+ dorsalis pedis pulses. No cyanosis, clubbing. 1+ pitting edema. SKIN: No gross abnormalities. PERTINENT LABORATORY DATA: Hemoglobin of 15.7. Creatinine 0.96. Troponin negative. BNP of 300. Echo Doppler shows LVEF 40% to 45% with mild mitral regurgitation present. IMPRESSION: 1. Shortness of breath. 2. Bronchitis. 3. Chronic systolic heart failure. RECOMMENDATIONS: Based on Mr. Mcallister's most recent echo, his LVEF does appear to be improved from previous echos. He also has no significant mitral regurgitation present. Overall, his cardiac status appears to be improving. We would agree with a recent diagnosis of bronchitis. We will treat appropriately. Recommend continuing carvedilol in addition to Entresto, Zocor, sotalol, and Coumadin. Job ID: [id number]
[2019-10-14] MEDS: Simvastatin 40 MG TAB PO SCH (20:23)
[2019-10-14] MEDS: ALPRAZolam 0.5 MG TAB PO PRN (21:24)
[2019-10-14] MEDS: Temazepam 15 MG CAP PO SCH (21:24)
--- NOTE | 2019-10-14 22:15 | PRG ---
DATE OF SERVICE: 10/14/2019 SUBJECTIVE: Tyrell Mcallister says he is feeling better. OBJECTIVE: VITAL SIGNS: He is in no distress. Afebrile, heart rate is in the 80s, respiratory rate is in 94 on room air, blood pressure is 119/69. LUNGS: Clear. HEART: Regular. ABDOMEN: Soft. LABORATORYDATA: No new lab today. An echocardiogram that shows that his ejection fraction 40 to 45%. IMPRESSION: Chronic obstructive pulmonary disease exacerbation, likely triggered by viral illness. I would think he would be stable to go home tomorrow. Job ID: [id number]
[2019-10-15] MEDS: Furosemide 40 MG/4 ML VIAL SLOW IVP SCH (05:23)
[2019-10-15] MEDS: Mometasone/Formoterol 120 PUFF INHALER INH SCH (06:31)
[2019-10-15] MEDS: Carvedilol 25 MG TAB PO SCH (08:14)
[2019-10-15] MEDS: predniSONE 20 MG TAB PO SCH (08:14)
[2019-10-15] MEDS: Sotalol HCl 80 MG TAB PO SCH (08:14)
[2019-10-15 08:21] VITALS: BP 120/62; TEMP 97.1
[2019-10-15 09:17] LABS: INR-International Normal Ratio 1.4; Prothrombin Time 16.6 SEC (12.0-14.7)
--- NOTE | 2019-10-15 11:01 | DIS ---
DATE OF ADMISSION: 10/14/2019 DATE OF DISCHARGE: 10/15/2019 PRIMARY CARE PROVIDER: Linden Snyder MD FINAL DIAGNOSES: Chronic obstructive pulmonary disease with exacerbation, acute on chronic systolic heart failure, unspecified atrial fibrillation without rapid ventricular response, long-term use of anticoagulants, bronchitis. DISCHARGE MEDICATIONS: 1. Warfarin 7.5 mg once a day. 2. Coreg 12.5 mg twice a day, new. 3. Entresto / one p.o. b.i.d. 4. Sotalol 80 mg p.o. b.i.d. 5. Potassium chloride 10 mEq a day. 6. Demadex 20 mg a day. 7. Alprazolam 0.5 mg p.o. p.r.n. 8. DuoNeb 3 mL q.i.d. p.r.n. 9. Zocor 40 mg a day. 10. Temazepam 15 mg p.o. at bedtime p.r.n. 11. Symbicort 160/4.5 two puffs b.i.d. 12. Prednisone 20 mg a day for 7 days, then 10 mg a day for 7 days, then discontinue. ALLERGIES: PENICILLIN. CODE STATUS: Full. PENDING AT TIME OF DISCHARGE: Nothing. DIET: Coumadin prudent. HOSPITAL COURSE: The patient was admitted to the Hospitalist Service through [facility] with shortness of breath. He was found to have a viral respiratory infection with acute exacerbation of COPD. Chest x-ray was unremarkable. Initial laboratory; INR 1.7, followup 1.3. CBC was unremarkable. Comprehensive metabolic profile had a bilirubin of 1.6, otherwise unremarkable. BNP was 300. Cardiac enzymes; troponins were less than 0.01 x3. The patient was seen in consultation by Dr. Jayme Oropeza, Dr. Jayesh Darnell. An echocardiogram was done, which revealed EF of 40% to 45%. The patient is being discharged on the both medications since his INR was low. His Coumadin was increased from 5 to 7.5 mg. He needs a PT/INR in 3 days. The patient has been instructed to see his primary care provider in 3 days to obtain necessary lab work for monitoring his anticoagulants. Job ID: [id number]
--- NOTE | 2019-10-16 03:16 | PQF ---
MANI COE, BENEDICT Gallardo MD [id number] [id number] CLINICAL DOCUMENTATION CLARIFICATION FORM: POST DISCHARGE Addendum to original discharge summary date: ____ Late entry note date: __ DATE: 10/16/19 ATTN: Dr Forbes, [place] Please exercise your independent, professional judgment in responding to the clarification form. Clinical indicators are provided on the bottom of this form for your review In your clinical opinion based on clinical findings below, can you please ideintify the consition as a reason for inpatient admission if due to : Please check appropriate box(s): [ ] Persistent Atrial Fibrillation [ ] COPD exacerbation [ ] CHF exacerbation [ ] Other diagnosis [ ] Unable to determine In addition, please specify: Present on Admission (POA): [ ] Yes [ ] No [ x] Unable to determine For continuity of documentation, please document condition throughout progress notes and discharge summary. Thank You. CLINICAL INDICATORS - SIGNS / SYMPTOMS / LABS H&P p1 10/12 Dr Nava presented to [facility] ER for a 4-day history of persistent cough and wheezing episodes associated with orthopnea and diminished functional status and incomplete ability of taking a breath prompting further ER evaluation. H&P p1 10/12 Dr Nava He reports a 6-pound weight gain in the last 24 hours H&P p1 10/12 Dr Nava BNP was 300. H&P p1 10/12 Dr Nava Noted ER documentation of patient tachycardiac on exertion from 80sto 130s and notably in atrial fibrillation. RISK FACTORS H&P p1 10/12 - 74-year-old male H&P p3 10/12 Persistent Afib H&P p3 10/12 COPD exacerbation H&P p3 10/12 Acute on Chronic Systolic CHF TREATMENTS: JAN 07 IV Lasix JAN 07 IV Prednisone JAN 07 Vitamin K Antagonist Pulmo Consult 10/13 Mendez, Dc Cardiology Consult 10/13 Jayesh Darnell (This form is maintained as a part of the permanent medical record) 2014 [employer]. All Rights Reserved [employer] [not provided] MTDD
== END 2019-10-15 10:31 | disposition home or self-care (01) | DRG 308 ==
LOC: ERS 07:20 → 2SW 17:22 → OBSVTOIN 10-14 11:23
PROVIDERS: ADMIT Hospitalist; ATTEND Hospitalist
DX: I48.19 Other persistent atrial fibrillation (principal); I50.23 Acute on chronic systolic (congestive) heart failure; J44.1 Chronic obstructive pulmonary disease with (acute) exacerbation; I42.8 Other cardiomyopathies; G47.33 Obstructive sleep apnea (adult) (pediatric); J40 Bronchitis, not specified as acute or chronic; Z96.653 Presence of artificial knee joint, bilateral; I11.0 Hypertensive heart disease with heart failure; E78.00 Pure hypercholesterolemia, unspecified; Z79.01 Long term (current) use of anticoagulants; Z88.0 Allergy status to penicillin; Z95.810 Presence of automatic (implantable) cardiac defibrillator; Z79.899 Other long term (current) drug therapy; Z79.52 Long term (current) use of systemic steroids; Z88.8 Allergy status to other drugs, medicaments and biological substances
CPT/HCPCS: 36415; 71045; 80053; 83880; 84484; 85014; 85018; 85025; 85049; 85610; 87633; 87798; 93005; 93306; 94640; 96374; J1940; J7512; J7620

== ENCOUNTER 2020-08-30 06:50 | Outpatient (CLI) | payer MEDICARE ==
[2020-08-31 12:08] LABS: SARS-CoV-2 MS2 Positive; SARS-CoV-2 N Gene Negative; SARS-CoV-2 S Gene Negative; SARS-CoV-2 by NAA Not Detected (NotDetected); SARS-CoV-2 orf1ab Negative
== END 2020-08-30 06:51 | disposition home or self-care (01) ==
LOC: LABBT 06:50
PROVIDERS: ATTEND Internal Medicine Gastroenterology
DX: Z20.828 Contact with and (suspected) exposure to other viral communicable diseases (principal)
CPT/HCPCS: 87635; U0003

== ENCOUNTER 2020-09-02 11:38 | Day surgery (SDC) | payer MEDICARE ==
[2020-09-01 14:28] VITALS: BMI 36.0
[~2020-09-02 11:38] MED LIST changes: +Lidocaine 1% PF 5 ML VIAL ONE; +PROPOFOL 200 MG/20 ML VIAL ONE; -Ropivacaine 0.2% HCl/PF (40 MG/20 ML VIAL) ONE; -Ropivacaine 0.5% HCl/PF (150 MG/30 ML VIAL) ONE
--- NOTE | 2020-09-02 20:20 | OP ---
DATE OF PROCEDURE: 09/02/2020 PROCEDURE PERFORMED: Colonoscopy. PREPROCEDURE DIAGNOSES: 1. History of adenomatous colon polyps. 2. Last colonoscopy in November 2014. 3. History of diverticulosis. POSTPROCEDURE DIAGNOSES: 1. Exam to cecum; good bowel preparation. 2. Mild to moderate sigmoid diverticulosis. 3. Small internal hemorrhoids. 4. Otherwise normal colonoscopy. 5. No polyps identified. DESCRIPTION OF PROCEDURE: Written informed consent was obtained. The patient was brought to the endoscopy suite. Total intravenous anesthesia was administered by Dr. Buck Chapa and associates. The patient was placed in the left lateral decubitus position. A digital rectal exam was performed that was unremarkable. A Pentax video colonoscope was inserted through the anal canal and advanced under direct visualization to the cecum. Position in the cecum was verified by clear identification of the appendiceal orifice and the ileocecal valve. The quality of the bowel preparation was good. Each colon segment was examined carefully as the colonoscope was slowly withdrawn from the cecum. Haustral folds and vascular pattern were normal. Frequent diverticular orifices were noted in the sigmoid colon, without evidence of bleeding or infection. The mucosa appeared grossly normal. No polyps were identified. In the rectum, a retroflexed view demonstrated small internal hemorrhoids that were not actively bleeding. The colon was decompressed as the colonoscope was removed from the patient. There were no immediate complications. He was transferred to the Day Stay surgery area for postprocedure monitoring. RECOMMENDATIONS: 1. Resume previous diet and medications, including Coumadin today. 2. Repeat colonoscopy in five years if clinically appropriate. 3. Follow up in GI clinic as needed. Job ID: [id number]
--- NOTE | 2020-09-05 20:53 | EKG ---
Test Reason : PREOP Blood Pressure : / mmHG Vent. Rate : 074 BPM Atrial Rate : 076 BPM P-R Int : 000 ms QRS Dur : 084 ms QT Int : 404 ms P-R-T Axes : 000 -13 010 degrees QTc Int : 448 ms Atrial fibrillation with premature ventricular or aberrantly conducted complexes Abnormal ECG No previous ECGs available Confirmed by Teto FENTON ([id number]) on 09/05/2020 8:53:17 PM Referred By: [facility] Confirmed By:Teto FENTON
== END 2020-09-02 15:33 | disposition home or self-care (01) ==
LOC: SDC 11:38
PROVIDERS: ATTEND Internal Medicine Gastroenterology
PROC: 0DJD8ZZ Inspection of Lower Intestinal Tract, Via Natural or Artificial Opening Endoscopic (ICD-10-PCS; principal; 2020-09-02)
DX: Z12.11 Encounter for screening for malignant neoplasm of colon (principal); K57.30 Diverticulosis of large intestine without perforation or abscess without bleeding; K64.8 Other hemorrhoids; Z79.899 Other long term (current) drug therapy; Z86.010 Personal history of colon polyps; Z88.0 Allergy status to penicillin; Z88.8 Allergy status to other drugs, medicaments and biological substances
CPT/HCPCS: 93005; 93010; J2704

== ENCOUNTER 2021-05-16 11:45 | Inpatient (IN) | payer MEDICARE ==
[2021-05-16 16:37] VITALS: BMI 35.9
[2021-05-18 11:57] VITALS: BP 108/64; TEMP 97.8
== END 2021-05-18 15:54 | disposition home or self-care (01) | DRG 813 ==
LOC: ERS 11:45 → T4-B 14:04
PROVIDERS: ADMIT Internal Medicine; ATTEND Internal Medicine
DX: D68.32 Hemorrhagic disorder due to extrinsic circulating anticoagulants (principal); I50.22 Chronic systolic (congestive) heart failure; I42.8 Other cardiomyopathies; I48.91 Unspecified atrial fibrillation; E78.00 Pure hypercholesterolemia, unspecified; G47.33 Obstructive sleep apnea (adult) (pediatric); I11.0 Hypertensive heart disease with heart failure; D64.9 Anemia, unspecified; M79.81 Nontraumatic hematoma of soft tissue; Z96.653 Presence of artificial knee joint, bilateral; J44.9 Chronic obstructive pulmonary disease, unspecified; Z79.01 Long term (current) use of anticoagulants; Z79.899 Other long term (current) drug therapy; Z95.810 Presence of automatic (implantable) cardiac defibrillator; Z88.0 Allergy status to penicillin; Z88.8 Allergy status to other drugs, medicaments and biological substances
CPT/HCPCS: 36415; 36416; 36430; 74177; 80048; 80053; 82247; 85014; 85018; 85025; 85049; 85610; 85730; 86850; 86900; 86901; 93005; 96374; 96375; 96376; J2270; J3010; J3430; P9059; Q9967

== ENCOUNTER 2021-07-08 12:31 | Outpatient (CLI) | payer MEDICARE | END 2021-07-08 12:32 | disposition home or self-care (01) | LOC: BICULT 12:31 | PROVIDERS: ATTEND Internal Medicine Cardiovascular Disease | DX: E04.1 Nontoxic single thyroid nodule (principal) | CPT/HCPCS: 76536 ==

== ENCOUNTER 2021-11-01 22:11 | Observation (INO) | payer MEDICARE ==
[2021-11-01 22:48] LABS: #Eosinphils 0.3 thou/uL (0.0-0.7); #Lymphocytes 1.7 thou/uL (1.20-3.40); #Monocytes 0.9 thou/uL (0.11-0.59); #Neutrophils 4.6 thou/uL (1.40-6.50); %Basophils 0.3 % (0.0-1.0); %Eosinophils 4.1 % (0.0-10.0); %Monocytes 12.2 % (0.0-10.0); %Neutrophils 60.4 % (42.0-75.0); Hemoglobin 14.1 g/dL (14.0-18.0); Mean Corpuscular HGB CONC 34.2 g/dL (32.0-36.0); Mean Corpuscular Hemoglobin 31.2 pg (27.0-31.0); Mean Corpuscular Volume 91.2 fL (78.0-98.0); Mean Platelet Volume 7.7 fL (7.4-10.4); Platelet Count 151 thou/uL (130-400); Red Blood Cell (RBC) Count 4.51 mill/uL (4.70-6.10); White Blood Cell (WBC) Count 7.6 thou/uL (4.8-10.8)
[2021-11-01 23:07] LABS: ALT (SGPT) 13 U/L (8-55); AST (SGOT) 21 U/L (5-34); Albumin 3.7 g/dL (3.4-4.8); Alkaline Phosphatase 64 U/L (40-110); Anion Gap 13 mmol/L (10-20); BUN (Urea Nitrogen) 17 mg/dL (8.4-25.7); Bilirubin, Total 1.5 mg/dL (0.2-1.2); Calc. Creatinine Clearance 0 mL/min (70-130); Calcium 9.1 mg/dL (7.8-10.44); Carbon Dioxide 26 mmol/L (23-31); Chloride 103 mmol/L (98-107); Globulin 2.5 g/dL (2.4-3.5); Glucose 171 mg/dL (83-110); Potassium 4.3 mmol/L (3.5-5.1); Protein, Total 6.2 g/dL (5.8-8.1); Sodium 138 mmol/L (136-145)
[2021-11-01] MEDS ORDERED: Furosemide 20 MG/2 ML VIAL ONE (23:33)
[2021-11-02 00:59] LABS: Bilirubin Negative (Negative); Blood, Urine Negative (Negative); Clarity Clear (Clear); Glucose, Urine (Dipstick) Normal (Negative); Ketone, Urine Negative (Negative); Leukocyte Negative Leu/uL (Negative); Nitrite Negative (Negative); Protein, Urine (Dipstick) Negative (Neg-Trace); Specific Gravity, Urine 1.007 (1.002-1.036); Urobilinogen Normal mg/dL (Less than 2)
[2021-11-02 13:27] LABS: SARS-CoV-2 PCR by NAA Not Detected (NotDetected)
== END 2021-11-02 04:45 | disposition left against medical advice (07) ==
LOC: ERS 22:11 → ERHOLD 11-02 01:51
PROVIDERS: ADMIT Student in an Organized Health Care Education/Training Program; ATTEND Student in an Organized Health Care Education/Training Program
DX: R06.00 Dyspnea, unspecified (principal); R05.9 Cough, unspecified; I10 Essential (primary) hypertension; I48.91 Unspecified atrial fibrillation; Z53.29 Procedure and treatment not carried out because of patient's decision for other reasons; Z88.0 Allergy status to penicillin; Z88.5 Allergy status to narcotic agent; Z88.8 Allergy status to other drugs, medicaments and biological substances; Z95.2 Presence of prosthetic heart valve; Z95.810 Presence of automatic (implantable) cardiac defibrillator; Z20.822 Contact with and (suspected) exposure to COVID-19
CPT/HCPCS: 71045; 80053; 81003; 83605; 83880; 84484; 85025; 93005; G0378; U0003; U0005; 96374; J1940; J7620

== ENCOUNTER 2021-11-03 09:58 | Outpatient (CLI) | payer MEDICARE | END 2021-11-03 09:59 | disposition home or self-care (01) | LOC: RAD 09:58 | PROVIDERS: ATTEND Internal Medicine Critical Care Medicine | DX: R06.00 Dyspnea, unspecified (principal) | CPT/HCPCS: 71046 ==

== ENCOUNTER 2022-03-31 08:07 | Outpatient (CLI) | payer MEDICARE ==
[2022-03-31 08:57] LABS: #Eosinphils 0.1 10x3/uL (0.0-0.5); #Monocytes 0.7 10x3/uL (0.0-1.1); #Neutrophils 3.3 10x3/uL (1.5-8.4); %Basophils 0.5 % (0.0-2.0); %Eosinophils 1.6 % (0.0-6.0); %Lymphocytes 25.2 % (18.0-47.0); %Neutrophils 60.2 % (40.0-75.0); Hemoglobin 14.7 g/dL (13.5-17.5); Mean Corpuscular HGB CONC 33.3 g/dL (32.0-36.0); Mean Corpuscular Volume 90.2 fl (81.2-95.1); Mean Platelet Volume 10.3 fl (7.4-10.4); Platelet Count 211 10x3/uL (150-450); RBC Distribution Width 13.2 % (11.5-14.5); White Blood Cell (WBC) Count 5.5 10x3/uL (3.5-10.5)
[2022-03-31 09:35] LABS: ALT (SGPT) 12 U/L (8-55); AST (SGOT) 15 U/L (5-34); Albumin 4.4 g/dL (3.4-4.8); Alkaline Phosphatase 60 U/L (40-110); Anion Gap 14 mmol/L (10-20); BUN (Urea Nitrogen) 14 mg/dL (8.4-25.7); Bilirubin, Total 1.4 mg/dL (0.2-1.2); Calc. Creatinine Clearance 0 mL/min (70-130); Calcium 9.2 mg/dL (7.8-10.44); Carbon Dioxide 29 mmol/L (23-31); Chloride 101 mmol/L (98-107); Globulin 2.1 g/dL (2.4-3.5); Glucose 115 mg/dL (83-110); INR-International Normal Ratio 2.1; PTT 37.9 sec (22.0-33.0); Potassium 4.2 mmol/L (3.5-5.1); Protein, Total 6.5 g/dL (5.8-8.1); Prothrombin Time 21.6 sec (9.5-12.1); Sodium 140 mmol/L (136-145)
== END 2022-03-31 08:08 | disposition home or self-care (01) ==
LOC: LABBT 08:07
PROVIDERS: ATTEND Surgery
DX: Z01.812 Encounter for preprocedural laboratory examination (principal); K42.9 Umbilical hernia without obstruction or gangrene; Z20.822 Contact with and (suspected) exposure to COVID-19
CPT/HCPCS: 80053; 85025; 85610; 85730; U0003; U0005

== ENCOUNTER 2022-04-05 07:10 | Day surgery (SDC) | payer MEDICARE ==
[2022-04-04 09:18] VITALS: BMI 36.0
[2022-04-05] MEDS ORDERED: Lidocaine 1% w/Epinephrine 1:100K 20 ML VIAL ONE (09:07)
[2022-04-05] MEDS ORDERED: Bupivacaine 0.25% HCL 30 ML VIAL ONE (09:07)
[2022-04-05] MEDS ORDERED: Levofloxacin 500 mg/D5W 100 ml Premix Bag ONE (09:13)
[2022-04-05] MEDS ORDERED: Midazolam HCl 2 mg/2 ml Vial ONE (09:16)
[2022-04-05] MEDS ORDERED: fentaNYL Citrate/PF 100 MCG/2 ML SYRINGE ONE (09:16)
[2022-04-05] MEDS ORDERED: Ondansetron PF 4 MG/2 ML Vial ONE (09:28)
[2022-04-05] MEDS ORDERED: PROPOFOL 200 MG/20 ML VIAL ONE (09:28)
[2022-04-05] MEDS ORDERED: Rocuronium Bromide 10 MG/ML (10ML VIAL) ONE (09:28)
[2022-04-05] MEDS ORDERED: Lidocaine 1% PF 5 ML VIAL ONE (09:28)
[2022-04-05] MEDS ORDERED: Dexamethasone 20 MG/5 ML VIAL ONE (09:28)
[2022-04-05] MEDS ORDERED: SUGAMMADEX SODIUM 200 MG/2 ML VIAL ONE (10:06)
== END 2022-04-05 11:55 | disposition home or self-care (01) ==
LOC: SDC 07:10
PROVIDERS: ATTEND Surgery
PROC: 0WUF0JZ Supplement Abdominal Wall with Synthetic Substitute, Open Approach (ICD-10-PCS; principal; 2022-04-05)
DX: K42.9 Umbilical hernia without obstruction or gangrene (principal); I11.0 Hypertensive heart disease with heart failure; I50.22 Chronic systolic (congestive) heart failure; J44.9 Chronic obstructive pulmonary disease, unspecified; M19.90 Unspecified osteoarthritis, unspecified site; Z79.01 Long term (current) use of anticoagulants; Z79.899 Other long term (current) drug therapy; Z88.0 Allergy status to penicillin; Z88.5 Allergy status to narcotic agent; Z88.8 Allergy status to other drugs, medicaments and biological substances; Z95.810 Presence of automatic (implantable) cardiac defibrillator
CPT/HCPCS: 49585; 85610; 93005; C1889; 93010; J1100; J1956; J2250; J2405; J2704; S0020

== ENCOUNTER 2022-11-08 10:54 | Outpatient (CLI) | payer MEDICARE | END 2022-11-08 10:55 | disposition home or self-care (01) | LOC: RAD 10:54 | PROVIDERS: ATTEND Internal Medicine Critical Care Medicine | DX: R06.00 Dyspnea, unspecified (principal); I48.91 Unspecified atrial fibrillation; I51.7 Cardiomegaly; Z95.0 Presence of cardiac pacemaker; Z98.890 Other specified postprocedural states | CPT/HCPCS: 71046 ==

== ENCOUNTER 2022-11-12 13:12 | Inpatient (IN) | payer MEDICARE ==
[2022-11-12 14:15] LABS: #Lymphocytes 1.2 thou/uL (1.20-3.40); #Monocytes 0.3 thou/uL (0.11-0.59); #Neutrophils 13.4 thou/uL (1.40-6.50); %Eosinophils 0.2 % (0.0-10.0); %Lymphocytes 7.8 % (21.0-51.0); %Monocytes 2.2 % (0.0-10.0); %Neutrophils 89.8 % (42.0-75.0); Hemoglobin 16.3 g/dL (14.0-18.0); Mean Corpuscular HGB CONC 34.2 g/dL (32.0-36.0); Mean Corpuscular Hemoglobin 30.9 pg (27.0-31.0); Mean Corpuscular Volume 90.2 fl (78.0-98.0); Platelet Count 217 10x3/uL (130-400); Red Blood Cell (RBC) Count 5.27 mill/uL (4.70-6.10); White Blood Cell (WBC) Count 14.9 10x3/uL (4.8-10.8)
[2022-11-12] MEDS ORDERED: Furosemide 40 MG/4 ML VIAL ONE (14:23)
[2022-11-12 14:24] LABS: Bilirubin Negative (Negative); Blood, Urine Negative (Negative); Clarity Clear (Clear); Glucose, Urine (Dipstick) Normal (Negative); Ketone, Urine Negative (Negative); Leukocyte Negative Leu/uL (Negative); Nitrite Negative (Negative); Protein, Urine (Dipstick) Negative (Neg-Trace); Specific Gravity, Urine 1.011 (1.002-1.036); Urobilinogen Normal mg/dL (Less than 2); pH, Urine 5.5 (5.0-9.0)
[2022-11-12 14:30] LABS: ALT (SGPT) 26 U/L (8-55); AST (SGOT) 26 U/L (5-34); Albumin 4.2 g/dL (3.4-4.8); Alkaline Phosphatase 76 U/L (40-110); Anion Gap 14 mmol/L (10-20); BUN (Urea Nitrogen) 23 mg/dL (8.4-25.7); Bilirubin, Total 1.1 mg/dL (0.2-1.2); Calc. Creatinine Clearance 0 mL/min (70-130); Calcium 9.5 mg/dL (7.8-10.44); Carbon Dioxide 31 mmol/L (23-31); Chloride 97 mmol/L (98-107); Estimated GFR 51; Globulin 2.6 g/dL (2.4-3.5); Glucose 191 mg/dL (83-110); Potassium 3.8 mmol/L (3.5-5.1); Protein, Total 6.8 g/dL (5.8-8.1); Sodium 138 mmol/L (136-145)
[2022-11-12 17:16] VITALS: BMI 34.8
[2022-11-12 17:26] LABS: Troponin I Less than 0.010 ng/mL (< 0.028)
[2022-11-12] MEDS ORDERED: Docusate 100 MG CAP PO PRN (18:59)
[2022-11-12] MEDS ORDERED: Electrolyte Replacement Protocol 1 EACH FS SCH (19:00)
[2022-11-12] MEDS ORDERED: Acetaminophen 325 MG TAB PO PRN (19:03)
[2022-11-12] MEDS ORDERED: Sotalol HCl 80 MG TAB PO SCH (20:00)
[2022-11-12] MEDS ORDERED: Mometasone 200 MCG/Formoterol 5 MCG 120 PUFF INHALER INH SCH (20:00)
[2022-11-12 20:03] LABS: INR-International Normal Ratio 3.2
[2022-11-12 20:16] LABS: Troponin I Less than 0.010 ng/mL (< 0.028)
[2022-11-12] MEDS ORDERED: Warfarin Sodium 5 MG TAB PO SCH (20:45)
[2022-11-12] MEDS: Temazepam 15 MG CAP PO SCH (21:29)
[2022-11-12] MEDS: GUAIFENESIN SF SOLN 200 MG/10 ML UDCUP PO PRN (21:29)
[2022-11-12] MEDS: Atorvastatin Calcium 20 MG TAB PO SCH (21:30)
[2022-11-12] MEDS: methylPREDNISolone Sod Succ 40 MG VIAL IVP SCH (21:30)
[2022-11-12] MEDS ORDERED: Magnesium 2 GM/50 ML(in water) 2 GM in Premix Bag 1 BAG IVPB SCH (22:00)
[2022-11-12] MEDS: Ipratropium/Albuterol 3 ML NEB NEB PRN (23:33)
[2022-11-13] MEDS: methylPREDNISolone Sod Succ 40 MG VIAL IVP SCH ×3 (04:17→21:20)
[2022-11-13] MEDS: GUAIFENESIN SF SOLN 200 MG/10 ML UDCUP PO PRN (04:17)
[2022-11-13 04:57] LABS: #Lymphocytes 1.3 thou/uL (1.20-3.40); #Monocytes 0.5 thou/uL (0.11-0.59); #Neutrophils 12.3 thou/uL (1.40-6.50); %Basophils 0.1 % (0.0-1.0); %Eosinophils 0.1 % (0.0-10.0); %Monocytes 3.4 % (0.0-10.0); %Neutrophils 87.5 % (42.0-75.0); Mean Corpuscular HGB CONC 33.4 g/dL (32.0-36.0); Mean Corpuscular Hemoglobin 30.3 pg (27.0-31.0); Mean Corpuscular Volume 90.7 fl (78.0-98.0); Mean Platelet Volume 7.9 fL (7.4-10.4); Platelet Count 240 10x3/uL (130-400); RBC Distribution Width 12.9 % (11.5-14.5); Red Blood Cell (RBC) Count 5.27 mill/uL (4.70-6.10)
[2022-11-13 05:04] LABS: INR-International Normal Ratio 2.9; Prothrombin Time 31.2 sec (12.0-14.7)
[2022-11-13 05:22] LABS: Anion Gap 12 mmol/L (10-20); BUN (Urea Nitrogen) 23 mg/dL (8.4-25.7); Calc. Creatinine Clearance 97 mL/min (70-130); Calcium 9.3 mg/dL (7.8-10.44); Carbon Dioxide 34 mmol/L (23-31); Chloride 96 mmol/L (98-107); Estimated GFR 84; Glucose 131 mg/dL (83-110); Magnesium 2.5 mg/dL (1.6-2.6); Potassium 4.1 mmol/L (3.5-5.1); Sodium 138 mmol/L (136-145)
[2022-11-13] MEDS: Ipratropium/Albuterol 3 ML NEB NEB PRN ×2 (08:07→20:00)
[2022-11-13] MEDS: Mometasone 200 MCG/Formoterol 5 MCG 120 PUFF INHALER INH SCH ×2 (08:10→19:59)
[2022-11-13] MEDS: Sotalol HCl 80 MG TAB PO SCH ×2 (09:44→17:11)
[2022-11-13] MEDS: Furosemide 20 MG/2 ML VIAL SLOW IVP SCH (09:44)
[2022-11-13] MEDS: Potassium Chloride 10 MEQ TAB PO SCH (09:44)
[2022-11-13] MEDS ORDERED: Warfarin Sodium 5 MG TAB PO SCH (17:00)
[2022-11-13] MEDS ORDERED: Warfarin Sodium 7.5 MG TAB PO SCH (17:00)
[2022-11-13] MEDS: Temazepam 15 MG CAP PO SCH (21:20)
[2022-11-13] MEDS: Atorvastatin Calcium 20 MG TAB PO SCH (21:20)
[2022-11-14] MEDS: methylPREDNISolone Sod Succ 40 MG VIAL IVP SCH (03:57)
[2022-11-14 06:02] LABS: Anion Gap 13 mmol/L (10-20); BUN (Urea Nitrogen) 26 mg/dL (8.4-25.7); Calc. Creatinine Clearance 106 mL/min (70-130); Calcium 9.2 mg/dL (7.8-10.44); Carbon Dioxide 28 mmol/L (23-31); Chloride 101 mmol/L (98-107); Estimated GFR 88; Glucose 127 mg/dL (83-110); Potassium 4.1 mmol/L (3.5-5.1); Sodium 138 mmol/L (136-145)
[2022-11-14 07:56] LABS: Hemoglobin 15.2 g/dL (14.0-18.0); Mean Corpuscular HGB CONC 32.7 g/dL (32.0-36.0); Mean Corpuscular Hemoglobin 29.9 pg (27.0-31.0); Mean Corpuscular Volume 91.6 fl (78.0-98.0); Platelet Count 242 10x3/uL (130-400); Red Blood Cell (RBC) Count 5.06 mill/uL (4.70-6.10); White Blood Cell (WBC) Count 20.7 10x3/uL (4.8-10.8)
[2022-11-14 08:00] LABS: INR-International Normal Ratio 3.9; Prothrombin Time 40.2 sec (12.0-14.7)
[2022-11-14] MEDS: Mometasone 200 MCG/Formoterol 5 MCG 120 PUFF INHALER INH SCH (08:02)
[2022-11-14] MEDS ORDERED: Warfarin Sodium 5 MG TAB PO SCH (08:45)
[2022-11-14] MEDS: Sotalol HCl 80 MG TAB PO SCH (08:56)
[2022-11-14] MEDS: Potassium Chloride 10 MEQ TAB PO SCH (08:58)
[2022-11-14] MEDS: Furosemide 20 MG/2 ML VIAL SLOW IVP SCH (08:58)
[2022-11-14 09:49] LABS: Band 2 % (5-11); Lymphocytes 8 % (21-51); MDiff Complete? YES; Monocytes 2 % (0-10); Neutrophil 87 % (42-75); RBC Morphology Normal; Reactive Lymphocytes 1 % (0-10)
[2022-11-14 11:57] VITALS: BP 141/81; TEMP 97.7
[2022-11-14] MEDS ORDERED: Carvedilol 6.25 MG TAB PO SCH (21:00)
[2022-11-14] MEDS ORDERED: Non-Formulary Item 1 EACH (Carvedilol [Coreg] 12.5 MG Tab) PO SCH (21:00)
== END 2022-11-14 11:57 | disposition home or self-care (01) | DRG 291 ==
LOC: ERS 13:12 → 2SW 17:09 → OBSVTOIN 11-13 16:01
PROVIDERS: ADMIT Internal Medicine; ATTEND Internal Medicine
DX: I11.0 Hypertensive heart disease with heart failure (principal); I50.23 Acute on chronic systolic (congestive) heart failure; I48.20 Chronic atrial fibrillation, unspecified; N17.9 Acute kidney failure, unspecified; J44.1 Chronic obstructive pulmonary disease with (acute) exacerbation; G47.33 Obstructive sleep apnea (adult) (pediatric); E78.00 Pure hypercholesterolemia, unspecified; Z96.653 Presence of artificial knee joint, bilateral; Z88.0 Allergy status to penicillin; Z88.5 Allergy status to narcotic agent
CPT/HCPCS: 36415; 71045; 80048; 80053; 81003; 83735; 83880; 84443; 84484; 85025; 85610; 93005; 93306; 94640; 96374; 96375; 96376; G0378; J1940; J1956; J2920; J3475; J7620; U0003; U0005

== ENCOUNTER 2023-04-14 21:20 | Inpatient (IN) | payer MEDICARE ==
[2023-04-14] MEDS ORDERED: Ketorolac Tromethamine 30 MG/ML VIAL ONE (21:31)
[2023-04-14] MEDS ORDERED: Diazepam 5 MG TAB ONE (21:31)
[2023-04-14 22:09] LABS: #Eosinphils 0.1 thou/uL (0.0-0.7); #Monocytes 0.8 thou/uL (0.11-0.59); #Neutrophils 4.1 thou/uL (1.40-6.50); %Basophils 0.3 % (0.0-1.0); %Eosinophils 1.7 % (0.0-10.0); %Monocytes 12.6 % (0.0-10.0); %Neutrophils 62.1 % (42.0-75.0); Hemoglobin 13.4 g/dL (14.0-18.0); Mean Corpuscular HGB CONC 32.5 g/dL (32.0-36.0); Mean Corpuscular Hemoglobin 29.6 pg (27.0-31.0); Mean Corpuscular Volume 90.9 fl (78.0-98.0); Mean Platelet Volume 10.1 fL (7.4-10.4); Platelet Count 187 10x3/uL (130-400); RBC Distribution Width 14.5 % (11.5-14.5); Red Blood Cell (RBC) Count 4.53 mill/uL (4.70-6.10); White Blood Cell (WBC) Count 6.6 10x3/uL (4.8-10.8)
[2023-04-14 22:15] LABS: Bacteria/HPF None Seen HPF (None Seen); Bilirubin Negative (Negative); Blood, Urine Negative (Negative); CAUTI Indications for Culture Pelvic or flank pain; Clarity Clear (Clear); Glucose, Urine (Dipstick) Normal (Negative); Ketone, Urine Negative (Negative); Leukocyte Negative Leu/uL (Negative); Nitrite Negative (Negative); Protein, Urine (Dipstick) Negative (Neg-Trace); RBC/HPF None Seen HPF (0-3); Specific Gravity, Urine 1.006 (1.002-1.036); Squamous Epithelial None Seen HPF (0-3); Urobilinogen Normal mg/dL (Less than 2); WBC/HPF 0-3 HPF (0-3); pH, Urine 6.5 (5.0-9.0)
[2023-04-14 22:24] LABS: Urine Culture Reflex No No
[2023-04-14 22:33] LABS: ALT (SGPT) 14 U/L (8-55); AST (SGOT) 15 U/L (5-34); Alkaline Phosphatase 60 U/L (40-110); Anion Gap 12 mmol/L (10-20); BUN (Urea Nitrogen) 19 mg/dL (8.4-25.7); Calc. Creatinine Clearance 0 mL/min (70-130); Calcium 9.5 mg/dL (7.8-10.44); Carbon Dioxide 26 mmol/L (23-31); Chloride 105 mmol/L (98-107); Estimated GFR 70; Globulin 2.1 g/dL (2.4-3.5); Glucose 103 mg/dL (83-110); Potassium 4.6 mmol/L (3.5-5.1); Protein, Total 6.1 g/dL (5.8-8.1); Sodium 138 mmol/L (136-145)
[2023-04-15] MEDS ORDERED: fentaNYL 50 mcg/mL 1 mL Vial ONE (00:23)
[2023-04-15] MEDS ORDERED: Senokot S 8.6-50 MG TAB PO PRN (01:14)
[2023-04-15] MEDS ORDERED: Acetaminophen 325 MG TAB PO PRN (01:14)
[2023-04-15] MEDS ORDERED: Cyclobenzaprine 10 MG TAB PO PRN (01:17)
[2023-04-15] MEDS ORDERED: Albuterol 200 PUFF (6.7GM INHALER) INH PRN (01:17)
[2023-04-15] MEDS ORDERED: Mometasone 200 MCG/Formoterol 5 MCG 120 PUFF INHALER INH PRN (01:17)
[2023-04-15] MEDS ORDERED: ALPRAZolam 0.5 MG TAB PO PRN (01:17)
[2023-04-15 03:39] VITALS: BMI 37.0
[2023-04-15 06:19] LABS: #Eosinphils 0.2 thou/uL (0.0-0.7); #Monocytes 0.7 thou/uL (0.11-0.59); #Neutrophils 2.5 thou/uL (1.40-6.50); %Basophils 0.4 % (0.0-1.0); %Eosinophils 2.8 % (0.0-10.0); %Lymphocytes 36.9 % (21.0-51.0); %Monocytes 12.3 % (0.0-10.0); %Neutrophils 47.4 % (42.0-75.0); Hemoglobin 12.9 g/dL (14.0-18.0); Mean Corpuscular HGB CONC 33.1 g/dL (32.0-36.0); Mean Corpuscular Hemoglobin 30.3 pg (27.0-31.0); Mean Corpuscular Volume 91.5 fl (78.0-98.0); Platelet Count 150 10x3/uL (130-400); RBC Distribution Width 14.5 % (11.5-14.5); Red Blood Cell (RBC) Count 4.26 mill/uL (4.70-6.10); White Blood Cell (WBC) Count 5.3 10x3/uL (4.8-10.8)
[2023-04-15 06:44] LABS: Anion Gap 12 mmol/L (10-20); BUN (Urea Nitrogen) 18 mg/dL (8.4-25.7); Calc. Creatinine Clearance 83 mL/min (70-130); Calcium 8.8 mg/dL (7.8-10.44); Carbon Dioxide 28 mmol/L (23-31); Chloride 104 mmol/L (98-107); Estimated GFR 67; Glucose 90 mg/dL (83-110); Potassium 3.9 mmol/L (3.5-5.1); Sodium 140 mmol/L (136-145)
[2023-04-15] MEDS: Sacubitril 24MG/Valsartan 26 MG TAB PO SCH ×2 (09:22→20:17)
[2023-04-15] MEDS: Apixaban 5 MG TAB PO SCH ×2 (09:22→20:17)
[2023-04-15] MEDS: Carvedilol 25 MG TAB PO SCH ×2 (09:22→17:26)
[2023-04-15] MEDS: Torsemide 20 MG TAB PO SCH (09:22)
[2023-04-15] MEDS: Morphine 4 MG/ML VIAL SLOW IVP PRN (09:22)
[2023-04-15] MEDS: Temazepam 15 MG CAP PO SCH (20:17)
[2023-04-15] MEDS: Atorvastatin Calcium 20 MG TAB PO SCH (20:17)
[2023-04-16] MEDS: Carvedilol 25 MG TAB PO SCH ×2 (08:09→16:30)
[2023-04-16] MEDS: Sacubitril 24MG/Valsartan 26 MG TAB PO SCH ×2 (08:09→21:29)
[2023-04-16] MEDS: Torsemide 20 MG TAB PO SCH (08:09)
[2023-04-16] MEDS: Apixaban 5 MG TAB PO SCH ×2 (08:09→21:29)
[2023-04-16] MEDS ORDERED: Gabapentin 100 MG CAP PO SCH (12:00)
[2023-04-16] MEDS: Atorvastatin Calcium 20 MG TAB PO SCH (21:29)
[2023-04-16] MEDS: Temazepam 15 MG CAP PO SCH (21:29)
[2023-04-16] MEDS: Gabapentin 100 MG CAP PO SCH (21:30)
[2023-04-17 01:45] VITALS: TEMP 97.5
[2023-04-17] MEDS: Carvedilol 25 MG TAB PO SCH (07:59)
[2023-04-17] MEDS: Sacubitril 24MG/Valsartan 26 MG TAB PO SCH (07:59)
[2023-04-17] MEDS: Gabapentin 100 MG CAP PO SCH ×2 (07:59→14:40)
[2023-04-17] MEDS: Apixaban 5 MG TAB PO SCH (07:59)
[2023-04-17] MEDS: Torsemide 20 MG TAB PO SCH (07:59)
[2023-04-17 09:03] VITALS: BP 95/62
[2023-04-17] MEDS ORDERED: Lorazepam 2 MG/ML VIAL SLOW IVP SCH (10:45)
[2023-04-17] MEDS: Morphine 4 MG/ML VIAL SLOW IVP PRN (12:08)
== END 2023-04-17 17:03 | disposition home or self-care (01) | DRG 552 ==
LOC: ERS 21:20 → T4-B 04-15 01:13 → OBSVTOIN 04-16 13:12
PROVIDERS: ADMIT Family Medicine; ATTEND Internal Medicine
DX: M47.26 Other spondylosis with radiculopathy, lumbar region (principal); I11.0 Hypertensive heart disease with heart failure; J44.9 Chronic obstructive pulmonary disease, unspecified; I48.91 Unspecified atrial fibrillation; I50.9 Heart failure, unspecified; Z96.653 Presence of artificial knee joint, bilateral; F41.9 Anxiety disorder, unspecified; M54.9 Dorsalgia, unspecified; G89.29 Other chronic pain; E78.5 Hyperlipidemia, unspecified; Z88.0 Allergy status to penicillin; Z88.8 Allergy status to other drugs, medicaments and biological substances; Z79.51 Long term (current) use of inhaled steroids; Z98.890 Other specified postprocedural states; Z79.899 Other long term (current) drug therapy; Z95.0 Presence of cardiac pacemaker
CPT/HCPCS: 36415; 70450; 72148; 74176; 80048; 80053; 81001; 85025; 85652; 96372; 96374; 96375; G0378; J1885; J2060; J2270; J3010

== ENCOUNTER 2023-07-15 09:59 | Emergency (ER) | payer MEDICARE ==
[~2023-07-15 09:59] MED LIST changes: +Iopamidol-370 76% 500 ML MDV (1 ML CHARGE) ONE; -Lidocaine 1% PF 5 ML VIAL ONE; -PROPOFOL 200 MG/20 ML VIAL ONE
[2023-07-15 10:43] LABS: #Eosinphils 0.1 thou/uL (0.0-0.7); #Neutrophils 7.7 thou/uL (1.40-6.50); %Basophils 0.2 % (0.0-1.0); %Eosinophils 0.7 % (0.0-10.0); %Lymphocytes 12.3 % (21.0-51.0); %Monocytes 10.1 % (0.0-10.0); %Neutrophils 76.4 % (42.0-75.0); Hematocrit 40.6 % (42.0-52.0); Hemoglobin 13.9 g/dL (14.0-18.0); Mean Corpuscular HGB CONC 34.2 g/dL (32.0-36.0); Mean Corpuscular Hemoglobin 31.2 pg (27.0-31.0); Mean Corpuscular Volume 91.2 fl (78.0-98.0); Mean Platelet Volume 10.7 fL (7.4-10.4); Platelet Count 169 10x3/uL (130-400); RBC Distribution Width 13.5 % (11.5-14.5); Red Blood Cell (RBC) Count 4.45 mill/uL (4.70-6.10)
[2023-07-15 11:05] LABS: INR-International Normal Ratio 1.1; PTT 33.2 sec (22.9-36.1); Prothrombin Time 14.1 sec (12.0-14.7)
[2023-07-15 11:09] LABS: ALT (SGPT) 15 U/L (8-55); AST (SGOT) 16 U/L (5-34); Albumin 4.1 g/dL (3.4-4.8); Alkaline Phosphatase 62 U/L (40-110); Anion Gap 13 mmol/L (10-20); BUN (Urea Nitrogen) 13 mg/dL (8.4-25.7); Bilirubin, Total 1.4 mg/dL (0.2-1.2); Calc. Creatinine Clearance 0 mL/min (70-130); Carbon Dioxide 28 mmol/L (23-31); Chloride 103 mmol/L (98-107); Estimated GFR 74; Globulin 2.4 g/dL (2.4-3.5); Glucose 171 mg/dL (83-110); Protein, Total 6.5 g/dL (5.8-8.1); Sodium 140 mmol/L (136-145)
[2023-07-15 11:13] LABS: Troponin I Less than 0.010 ng/mL (< 0.028)
[2023-07-15] MEDS ORDERED: Ipratropium/Albuterol 3 ML NEB ONE (11:20)
[2023-07-15] MEDS ORDERED: Azithromycin 500 MG VIAL ONE (11:44)
== END 2023-07-15 13:20 | disposition home or self-care (01) ==
LOC: ERS 09:59
DX: J20.9 Acute bronchitis, unspecified (principal); I11.0 Hypertensive heart disease with heart failure; I50.9 Heart failure, unspecified; J44.9 Chronic obstructive pulmonary disease, unspecified; Z79.899 Other long term (current) drug therapy
CPT/HCPCS: 71045; 71275; 80053; 83880; 84484; 85025; 85610; 85730; 93005; 94760; 96365; 99285; J0456; J7620; Q9967

== ENCOUNTER 2023-08-28 14:29 | Outpatient (CLI) | payer MEDICARE | END 2023-08-28 14:30 | disposition home or self-care (01) | LOC: RAD 14:29 | PROVIDERS: ATTEND Internal Medicine Critical Care Medicine | DX: R06.00 Dyspnea, unspecified (principal) | CPT/HCPCS: 71046 ==

== ENCOUNTER 2024-03-05 01:15 | Emergency (ER) | payer MEDICARE | END 2024-03-05 06:30 | disposition home or self-care (01) | LOC: ERS 01:15 | DX: N28.1 Cyst of kidney, acquired (principal); D72.829 Elevated white blood cell count, unspecified; E27.9 Disorder of adrenal gland, unspecified; R94.5 Abnormal results of liver function studies; J44.9 Chronic obstructive pulmonary disease, unspecified; I11.0 Hypertensive heart disease with heart failure; I50.9 Heart failure, unspecified; I48.91 Unspecified atrial fibrillation | CPT/HCPCS: 74177; 80053; 81001; 83605; 83690; 84484; 85025; 93005; Q9967 ==

== ENCOUNTER 2025-10-22 17:22 | Emergency (ER) | payer MEDICARE ==
[2025-10-22 17:54] LABS: #Basophils 0.03 10x3/uL (0.0-0.2); #Eosinophils 0.11 10x3/uL (0.0-0.7); #Monocytes 0.93 10x3/uL (0.11-0.59); #Neutrophils 5.82 10x3/uL (1.40-6.50); %Basophils 0.3 % (0.0-1.0); %Eosinophils 1.2 % (0.0-10.0); %Lymphocytes 22.1 % (21.0-51.0); %Monocytes 10.4 % (0.0-10.0); %Neutrophils 65.6 % (42.0-75.0); Hematocrit 39.9 % (42.0-52.0); Hemoglobin 12.8 g/dL (14.0-18.0); Mean Corpuscular Hemoglobin 30.4 pg (27.0-31.0); Mean Corpuscular Volume 94.8 fL (78.0-98.0); Platelet Count 209 10x3/uL (130-400); Red Blood Cell (RBC) Count 4.21 mill/uL (4.70-6.10); White Blood Cell (WBC) Count 8.90 10x3/uL (4.8-10.8)
[2025-10-22 18:08] LABS: ALT (SGPT) 12 U/L (Less than 45); AST (SGOT) 18 U/L (11-34); Albumin 3.8 g/dL (3.1-4.5); Alkaline Phosphatase 73 U/L (40-110); Anion Gap 15 mmol/L (10-20); BUN (Urea Nitrogen) 21 mg/dL (8.4-25.7); Bilirubin, Total 1.2 mg/dL (0.3-1.2); Calc. Creatinine Clearance 0 mL/min (70-130); Calcium 9.6 mg/dL (7.8-10.44); Carbon Dioxide 29 mmol/L (23-31); Chloride 103 mmol/L (98-107); Globulin 2.4 g/dL (2.4-3.5); Glucose 99 mg/dL (83-110); INR-International Normal Ratio 1.1; PTT 31.2 sec (22.9-36.1); Potassium 4.3 mmol/L (3.5-5.1); Prothrombin Time 14.5 sec (12.0-14.7); Sodium 143 mmol/L (136-145)
[2025-10-22] MEDS ORDERED: Ondansetron PF 4 MG/2 ML Vial ONE (18:47)
== END 2025-10-22 19:47 ==
LOC: ERS 17:22
DX: S70.01XA Contusion of right hip, initial encounter (principal); I11.0 Hypertensive heart disease with heart failure; I50.9 Heart failure, unspecified; J44.9 Chronic obstructive pulmonary disease, unspecified; I48.91 Unspecified atrial fibrillation; Z79.01 Long term (current) use of anticoagulants; W07.XXXA Fall from chair, initial encounter
CPT/HCPCS: 80053; 85025; 85610; 85730; 86850; 86900; 86901; 96374; 96375; J2272; J2405